=== PATIENT | male | born 1950 | race American Indian/Alaskan Native ===

== ENCOUNTER 2016-10-30 10:29 | Emergency (ER) | payer MEDICARE ==
[2016-10-30 11:14] VITALS: RESP 20; O2SAT 98
--- NOTE | 2016-10-30 12:04 | ED PDOC ---
HPI: General Adult Time Seen by Provider: 10/30/16 10:48 Chief Complaint (Nursing): Psychiatric Evaluation Chief Complaint (Provider): Urinating in public, denies complaints History Per: Patient History/Exam Limitations: no limitations Have you had recent travel within the past 21 days to any of the following countries: [place], [place], [place] or [place]?: No Additional Complaint(s): Pt was brought for psychiatric evaluation after he was seen urinating in a post office. Pt states he urinated on the floor because he has an enlarged prostate and when he has to go he has to go. Pt denies psychiatric history. PT denies complaints. Past Medical History Reviewed: Historical Data, Nursing Documentation, Vital Signs Vital Signs: Last Vital Signs Temp 97 F L 10/30/16 11:11 Pulse 66 10/30/16 11:11 Resp 20 10/30/16 11:11 BP 109/73 10/30/16 11:11 Pulse Ox 98 10/30/16 11:11 - Medical History PMH: No Chronic Diseases - Family History Family History: States: No Known Family Hx - Living Arrangements Living Arrangements: With Family - Social History Current smoker - smoking cessation education provided: No Alcohol: Occasional - Home Medications Home Medications: Ambulatory Orders Medication Instructions Recorded Clotrimazole 1% [Lotrimin AF 1%] 10 applic TOP BID #1 bottle 08/23/16 - Allergies Allergies/Adverse Reactions: Allergies Allergy/AdvReac Type Severity Reaction Status Date / Time No Known Allergies Allergy Verified 08/23/16 11:53 Review of Systems ROS Statement: Except As Marked, All Systems Reviewed And Found Negative Physical Exam - Reviewed Nursing Documentation Reviewed: Yes Vital Signs Reviewed: Yes - Physical Exam Appears: Positive for: Well, Non-toxic, No Acute Distress Head Exam: Positive for: ATRAUMATIC, NORMAL INSPECTION, NORMOCEPHALIC Skin: Positive for: Normal Color, Warm, DRY Eye Exam: Positive for: Normal appearance ENT: Positive for: Normal ENT Inspection Neck: Positive for: Normal, Painless ROM Cardiovascular/Chest: Positive for: Regular Rate, Rhythm Respiratory: Positive for: CNT, Normal Breath Sounds Gastrointestinal/Abdominal: Positive for: Normal Exam, Bowel Sounds, Soft Back: Positive for: Normal Inspection Extremity: Positive for: Normal ROM Neurologic/Psych: Positive for: Alert, Oriented - ECG O2 Sat by Pulse Oximetry: 98 Medical Decision Making Medical Decision Making: urine dip normal. Pt eats 2 trays of food in ER. Disposition - Clinical Impression Clinical Impression: Normal exam - Patient ED Disposition Is Patient to be Admitted: No Counseled Patient/Family Regarding: Diagnosis, Need For Followup - Disposition Referrals: [facility] [Outside] Disposition: Routine/Home Disposition Time: 12:41 Condition: GOOD Instructions: Normal Exam (ED)
[2016-10-30 14:19] VITALS: BP 128/78; PULSE 78; TEMP 97.6
== END 2016-10-30 14:19 | disposition home or self-care (01) ==
LOC: H.ER 10:29
DX: Z00.00 Encounter for general adult medical examination without abnormal findings (principal)

== ENCOUNTER 2017-04-16 11:27 | Inpatient (IN) | payer MEDICARE ==
[2017-04-16 11:46] VITALS: BMI 24.4
[2017-04-16] MEDS ORDERED: Sodium Chloride 0.9% 1,000 ML IV STA (11:46)
--- NOTE | 2017-04-16 11:53 | ED PDOC ---
HPI: General Adult Time Seen by Provider: 04/16/17 11:40 Chief Complaint (Provider): Wandering street History Per: Patient History/Exam Limitations: no limitations Onset/Duration Of Symptoms: Days (Today) Additional Complaint(s): Pt. was found walking the middle of the street so EMS and police brought pt. to the ER. Pt. states he is coming from [place] and did nothing wrong. Denies alcohol or drugs. Denies weakness, headaches, dizziness, fall, chest pain, dyspnea, abd pain, suicidal or homicidal ideation. Is under arrest. Has no complaints. Per records pt. has been in ER for etoh and aggressive behavior. Past Medical History Reviewed: Nursing Documentation, Vital Signs Vital Signs: Last Vital Signs Temp 98.4 F 04/16/17 11:52 Pulse 84 04/16/17 11:52 Resp 18 04/16/17 11:52 BP 139/85 04/16/17 11:52 Pulse Ox 96 04/16/17 11:52 - Medical History PMH: No Chronic Diseases - Surgical History Surgical History: No Surg Hx - Family History Family History: States: Unknown Family Hx - Social History Alcohol: Occasional Drugs: Denies - Home Medications Home Medications: Ambulatory Orders Medication Instructions Recorded Clotrimazole 1% [Lotrimin AF 1%] 10 applic TOP BID #1 bottle 08/23/16 - Allergies Allergies/Adverse Reactions: Allergies Allergy/AdvReac Type Severity Reaction Status Date / Time No Known Allergies Allergy Verified 08/23/16 11:53 Review of Systems ROS Statement: Except As Marked, All Systems Reviewed And Found Negative Physical Exam - Reviewed Nursing Documentation Reviewed: Yes Vital Signs Reviewed: Yes - Physical Exam Appears: Positive for: Non-toxic, No Acute Distress Head Exam: Positive for: ATRAUMATIC, NORMAL INSPECTION, NORMOCEPHALIC Skin: Positive for: Normal Color, Warm, DRY Eye Exam: Positive for: EOMI, Normal appearance, PERRL ENT: Positive for: Normal ENT Inspection Neck: Positive for: Normal, Painless ROM, Supple Cardiovascular/Chest: Positive for: Regular Rate, Rhythm Respiratory: Positive for: CNT, Normal Breath Sounds Gastrointestinal/Abdominal: Positive for: Normal Exam, Bowel Sounds, Soft. Negative for: Tenderness Back: Positive for: Normal Inspection. Negative for: L CVA Tenderness, R CVA Tenderness Extremity: Positive for: Normal ROM. 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 Negative for: Motor/Sensory Deficits - Laboratory Results Result Diagrams: 04/16/17 12:10 04/16/17 12:10 Interpretation Of Abn Labs: mono elevated - ECG ECG: Positive for: Interpreted By Me, Viewed By Me ECG Rhythm: Positive for: Normal QRS, Normal ST Segment, Sinus Rhythm - CT Scan/US head Other Rad Studies (CT/US): Read By Radiologist Other Rad Interpretation: sinusitis - Progress ED Course And Treament: 1412: Stable. AAOx3. Crisis saw pt. Does not meet criteria for admit. FU outpt. ED OBSERVATION Discharge: Yes Date of observation admission: 04/16/17 Time of observation admission: 11:53 - Observation admission statement Patient is being placed in observation because:: Eval for etoh - Goals of Observation Goals of observation are:: monitor - Progress Note Progress Note: 04/16/17 14:12 Stable. Ambulated with no issues. Will dc with antibiotics. AAOx3. Disposition - Clinical Impression Clinical Impression: Sinusitis, Aggression - Patient ED Disposition Is Patient to be Admitted: No Counseled Patient/Family Regarding: Studies Performed, Diagnosis, Need For Followup, Rx Given - Disposition Disposition: Routine/Home Disposition Time: 14:14 Condition: STABLE
[2017-04-16 12:18] LABS: BASO % 0.6 % (0.0-2.0); EOS # 0.2 K/uL (0.0-0.7); EOS % 5.9 % (0.0-4.0); HEMATOCRIT 37.2 % (35.0-51.0); LYMPH # 1.2 K/uL (1.0-4.3); LYMPH % 35.5 % (20.0-40.0); MEAN CELL VOLUME 86.3 fl (80.0-94.0); MEAN CORPUSCULAR HEMOGLOBIN 27.9 pg (27.0-31.0); MEAN CORPUSCULAR HGB CONC 32.4 g/dL (33.0-37.0); MEAN PLATELET VOLUME 6.9 fl (7.2-11.7); MONO # 0.4 K/uL (0.0-0.8); MONO % 12.7 % (0.0-10.0); NEUT # 1.5 K/uL (1.8-7.0); NEUT % 45.3 % (50.0-75.0); RED CELL DISTRIBUTION WIDTH 14.8 % (11.5-14.5); WHITE BLOOD COUNT 3.3 K/uL (4.8-10.8)
[2017-04-16 12:27] LABS: ALCOHOL SERUM < 10 mg/dl (0-10); BLOOD UREA NITROGEN 13 mg/dl (9-20); CALCIUM 9.6 mg/dL (8.4-10.2); CARBON DIOXIDE 24 mmol/L (22-30); CHLORIDE 106 mmol/L (98-107); GFR AFRICAN-AMERICAN > 60; GLUCOSE,RANDOM 89 mg/dL (75-110); POTASSIUM 3.8 MMOL/L (3.6-5.0); SODIUM 140 mmol/l (132-148)
--- NOTE | 2017-04-16 13:33 | CT ---
PROCEDURE: CT HEAD WITHOUT CONTRAST. HISTORY: headache COMPARISON: None available. TECHNIQUE: Axial computed tomography images were obtained through the head/brain without intravenous contrast. Radiation dose: Total exam DLP = 1237.67 mGy-cm. This CT exam was performed using one or more of the following dose reduction techniques: Automated exposure control, adjustment of the mA and/or kV according to patient size, and/or use of iterative reconstruction technique. FINDINGS: HEMORRHAGE: No intracranial hemorrhage. BRAIN: No mass effect or edema. Mild atrophy and mild white matter changes suggestive of chronic micro vascular ischemic disease. VENTRICLES: Unremarkable. No hydrocephalus. CALVARIUM: Unremarkable. PARANASAL SINUSES: There is moderate mucosal thickening and small air-fluid level at the left maxillary sinus. Moderate mucosal thickening is also noted at the ethmoid and frontal sinuses. Findings suspicious for sinusitis in appropriate clinical setting. MASTOID AIR CELLS: Unremarkable as visualized. No inflammatory changes. OTHER FINDINGS: None. IMPRESSION: No evidence of acute intracranial hemorrhage intracranial collection mass effect or midline shift. Moderate mucosal sinuses disease suspicious for sinusitis .
[2017-04-16] MEDS ORDERED: Naloxone 0.4 mg/ml Inj (Adult) IVP ONE ×2 (14:59→15:08)
--- NOTE | 2017-04-16 16:06 | CARD ---
APPROVED REPORT EKG Measurement Heart [id number] MS [id number] <Conclusion> Sinus rhythm with marked sinus arrhythmia Otherwise normal ECG
--- NOTE | 2017-04-16 16:13 | CP.CCUPN ---
CCU Subjective - Physician Review Subjective (Free Text): ICU Consultation for Admission: 66 M brought in by EMS after being found walking in the middle of the street, confused, and disoriented. No distress noted, given Narcan x 2 doses in ER without significant effect on mentation. Has been under ER observation and as he was about to be discharged, noted to be bradycardic on the m onto and found to have a HR 33, given Atropine 0.5mg IVP which increased HR to 80s. No hypotension nor hypoxemia noted, otherwise remains non-distressed. Otherwise he is a poor historian, and unable to provide any reliable historical facts. Review of old medical records show he has a Psychiatric history that includes schizophrenia. He states he is only on an antibiotic now. Other vitals and I/O's reviewed. No fever spikes. ROS: Not obtainable due to limited conversation with patient due to confusion / disorientation. No other pertinent negs or positives on 10+ system review. PMSFH: All Nursing and physician documentation reviewed to date; no new pertinent info noted relevant to current medical problems. MAJOR PROBLEMS: 1. Altered mental Status: r/o other Occult substance ingestion use; versus possible other anti-psychotic med usage. 2. Bradycardia 3. Leukopenia PLAN: 1. Telemetry observation. No need for any transcutaneous nor transvenous cardiac pacing. 2. CT brain negative, maintain Neuro checks, seizure precautions. 3. ECHO 4. Check repeat EKG 5. IVFs 6. Urine tox screen 7. Serum tox panel 8. May need 1:1 supervision for patient safety and psychiatric eval. CCU Objective - Vital Signs / Intake & Output Vital Signs (Last 4 hours): Vital Signs Pulse Resp BP Pulse Ox 04/16/17 15:34 57 L 18 126/78 99 Intake and Output (Last 8hrs): Intake & Output 04/16/17 04/16/17 04/16/17 06:59 14:59 22:59 Weight 165 lb - Physical Exam Physical Exam Limitations: Positive for: Altered Mental Status Head: Positive for: Normocephalic Pupils: Positive for: PERRL Extroacular Muscles: Positive for: EOMI Conjunctiva: Negative for: Icteric Mouth: Positive for: Moist Mucous Membranes. Negative for: Drooling Neck: Positive for: Normal Range of Motion. Negative for: Meningeal Signs, JVD , Lymphadenopathy Respiratory/Chest: Positive for: Clear to Auscultation Cardiovascular: Positive for: Regular Rate and Rhythm, Bradycardic Abdomen: Positive for: Normal Bowel Sounds. Negative for: Tenderness, Distention Upper Extremity: Positive for: Normal Inspection Lower Extremity: Positive for: Edema (trace), NORMAL PULSES Neurological: Positive for: GCS=15. Negative for: Speech Normal, Motor Func Grossly Intact, Normal Sensory Function Skin: Positive for: Warm. Negative for: Rashes - Patient Studies Lab Studies: Lab Studies 04/16/17 04/16/17 04/16/17 Range/Units 15:30 12:10 12:10 WBC 3.3 L (4.8-10.8) K/uL RBC 4.31 L (4.40-5.90) Mil/uL Hgb 12.0 (12.0-18.0) g/dL Hct 37.2 (35.0-51.0) % MCV 86.3 (80.0-94.0) fl MCH 27.9 (27.0-31.0) pg MCHC 32.4 L (33.0-37.0) g/dL RDW 14.8 H (11.5-14.5) % Plt Count 246 (130-400) K/uL MPV 6.9 L (7.2-11.7) fl Neut % (Auto) 45.3 L (50.0-75.0) % Lymph % (Auto) 35.5 (20.0-40.0) % [place] % (Auto) 12.7 H (0.0-10.0) % Eos % (Auto) 5.9 H (0.0-4.0) % Baso % (Auto) 0.6 (0.0-2.0) % Neut # 1.5 L (1.8-7.0) K/uL Lymph # 1.2 (1.0-4.3) K/uL [place] # 0.4 (0.0-0.8) K/uL Eos # 0.2 (0.0-0.7) K/uL Baso # 0.0 (0.0-0.2) K/uL Sodium 140 (132-148) mmol/l Potassium 3.8 (3.6-5.0) MMOL/L Chloride 106 (98-107) mmol/L Carbon Dioxide 24 (22-30) mmol/L Anion Gap 13 (10-20) BUN 13 (9-20) mg/dl Creatinine 0.9 (0.8-1.5) mg/dL Est GFR ( Amer) > 60 Est GFR (Non-Af Amer) > 60 Random Glucose 89 (75-110) mg/dL Calcium 9.6 (8.4-10.2) mg/dL Troponin I < 0.0120 (0.00-0.120) ng/mL Urine Opiates Screen Negative (NEGATIVE) Urine Methadone Screen Negative (NEGATIVE) Ur Barbiturates Screen Negative (NEGATIVE) Ur Phencyclidine Scrn Negative (NEGATIVE) Ur Amphetamines Screen Negative (NEGATIVE) U Benzodiazepines Scrn Negative (NEGATIVE) U Oth Cocaine Metabols Negative (NEGATIVE) U Cannabinoids Screen Negative (NEGATIVE) Alcohol, Quantitative < 10 (0-10) mg/dl Laboratory Results - last 24 hr 04/16/17 04/16/17 04/16/17 12:10 12:10 15:30 WBC 3.3 L RBC 4.31 L Hgb 12.0 Hct 37.2 MCV 86.3 MCH 27.9 MCHC 32.4 L RDW 14.8 H Plt Count 246 MPV 6.9 L Neut % (Auto) 45.3 L Lymph % (Auto) 35.5 [place] % (Auto) 12.7 H Eos % (Auto) 5.9 H Baso % (Auto) 0.6 Neut # 1.5 L Lymph # 1.2 [place] # 0.4 Eos # 0.2 Baso # 0.0 Sodium 140 Potassium 3.8 Chloride 106 Carbon Dioxide 24 Anion Gap 13 BUN 13 Creatinine 0.9 Est GFR ( Amer) > 60 Est GFR (Non-Af Amer) > 60 Random Glucose 89 Calcium 9.6 Troponin I < 0.0120 Urine Opiates Screen Negative Urine Methadone Screen Negative Ur Barbiturates Screen Negative Ur Phencyclidine Scrn Negative Ur Amphetamines Screen Negative U Benzodiazepines Scrn Negative U Oth Cocaine Metabols Negative U Cannabinoids Screen Negative Alcohol, Quantitative < 10 EKG/Cardiology Studies: (My Interp) EKG #1; sinus 66/min, sinus arrythmia noted. Review of Systems - Review of Systems Systems not reviewed;Unavailable: Altered Mental Status
[2017-04-16] MEDS: Potassium Ch 20mEq in D5-1/2NS 1,000 ML IV SCH (20:00)
--- NOTE | 2017-04-16 21:14 | CP.PCM.CON ---
Past Patient History - Infectious Disease Hx of Infectious Diseases: None - Past Social History Smoking Status: Heavy Smoker > 10 Cigarettes Daily - CARDIAC Hx Cardiac Disorders: No - PULMONARY Hx Tuberculosis: No - NEUROLOGICAL HX Cerebrovascular Accident: No Hx Seizures: No - HEMATOLOGICAL/ONCOLOGICAL Hx AIDS: No Hx Human Immunodeficiency Virus (HIV): No - MUSCULOSKELETAL/RHEUMATOLOGICAL Hx Falls: No - GASTROINTESTINAL Hx Gastrointestinal Disorders: No - GENITOURINARY/GYNECOLOGICAL Hx Sexually Transmitted Disorders: No - PSYCHIATRIC Hx Substance Use: Yes - SURGICAL HISTORY Hx Surgeries: No - ANESTHESIA Hx Anesthesia: No Meds Allergies/Adverse Reactions: Allergies Allergy/AdvReac Type Severity Reaction Status Date / Time No Known Allergies Allergy Verified 08/23/16 11:53 - Medications Medications: Current Medications Aspirin (Aspirin) 325 mg PO DAILY [facility] Enoxaparin Sodium (Lovenox) 40 mg SC DAILY [facility] PRN Reason: Protocol Famotidine (Pepcid) 20 mg IVP Q12 [facility] Potassium Chloride/Dextrose/Sod Cl (Potassium Chl 20 Meq In D5-1/2ns) 1,000 mls @ 125 mls/hr IV .Q8H [facility] Stop: 04/17/17 17:57 Pantoprazole Sodium (Protonix Inj) 40 mg IVP DAILY [facility] Results - Vital Signs Recent Vital Signs: Last Vital Signs Temp 98.8 F 04/16/17 18:00 Pulse 45 L 04/16/17 18:14 Resp 24 04/16/17 18:14 BP 135/96 H 04/16/17 18:00 Pulse Ox 98 04/16/17 18:00 - Labs Result Diagrams: 04/16/17 12:10 04/16/17 12:10 Labs: Laboratory Results - last 24 hr 04/16/17 04/16/17 04/16/17 12:10 12:10 15:30 WBC 3.3 L RBC 4.31 L Hgb 12.0 Hct 37.2 MCV 86.3 MCH 27.9 MCHC 32.4 L RDW 14.8 H Plt Count 246 MPV 6.9 L Neut % (Auto) 45.3 L Lymph % (Auto) 35.5 [place] % (Auto) 12.7 H Eos % (Auto) 5.9 H Baso % (Auto) 0.6 Neut # 1.5 L Lymph # 1.2 [place] # 0.4 Eos # 0.2 Baso # 0.0 Sodium 140 Potassium 3.8 Chloride 106 Carbon Dioxide 24 Anion Gap 13 BUN 13 Creatinine 0.9 Est GFR ( Amer) > 60 Est GFR (Non-Af Amer) > 60 Random Glucose 89 Calcium 9.6 Troponin I < 0.0120 Urine Opiates Screen Negative Urine Methadone Screen Negative Ur Barbiturates Screen Negative Ur Phencyclidine Scrn Negative Ur Amphetamines Screen Negative U Benzodiazepines Scrn Negative U Oth Cocaine Metabols Negative U Cannabinoids Screen Negative Alcohol, Quantitative < 10 Assessment & Plan (1) Bradycardia Status: Acute (2) Intoxication Status: Acute (3) Aggression Status: Acute - Assessment and Plan (Free Text) Plan: WOULD CHECK LYTES, ECHO, AND TFT'S. PT HEMODYNAMICALLY STABLE. IF HR DOESNT INCREASE WITH MOVEMENT OR TREATMENT OF KNOWN ETIOLOGY THEN WILL LIKELY NEED PPM. FOR NOW CONTINUE ICU MONITORING, AVOID ANY RATE LIMITING AGENTS. 60 MIN TOTAL CARE TIME.
[2017-04-17] MEDS: Potassium Ch 20mEq in D5-1/2NS 1,000 ML IV SCH ×2 (04:00→12:25)
[2017-04-17 05:37] LABS: BASO % 0.8 % (0.0-2.0); EOS # 0.2 K/uL (0.0-0.7); HEMATOCRIT 37.7 % (35.0-51.0); LYMPH % 28.1 % (20.0-40.0); MEAN CELL VOLUME 86.1 fl (80.0-94.0); MEAN CORPUSCULAR HEMOGLOBIN 27.9 pg (27.0-31.0); MEAN CORPUSCULAR HGB CONC 32.4 g/dL (33.0-37.0); MEAN PLATELET VOLUME 7.3 fl (7.2-11.7); MONO # 0.5 K/uL (0.0-0.8); MONO % 13.6 % (0.0-10.0); NEUT # 1.8 K/uL (1.8-7.0); NEUT % 51.5 % (50.0-75.0); NRBC % 0.1 % (0.0-0.0); RED CELL DISTRIBUTION WIDTH 14.8 % (11.5-14.5); WHITE BLOOD COUNT 3.4 K/uL (4.8-10.8)
[2017-04-17 05:41] LABS: ALB/GLOB RATIO 1.2 (1.0-2.1); ALKALINE PHOSPHATASE 67 U/L (38-126); ALT/SGPT 51 U/L (21-72); AST/SGOT 40 U/L (17-59); BILIRUBIN,TOTAL 0.5 mg/dl (0.2-1.3); BLOOD UREA NITROGEN 15 mg/dl (9-20); CALCIUM 8.8 mg/dL (8.4-10.2); CARBON DIOXIDE 27 mmol/L (22-30); CHLORIDE 107 mmol/L (98-107); GFR AFRICAN-AMERICAN > 60; GLUCOSE,RANDOM 92 mg/dL (75-110); MAGNESIUM 1.9 MG/DL (1.6-2.3); POTASSIUM 4.3 MMOL/L (3.6-5.0); SODIUM 139 mmol/l (132-148); TOTAL PROTEIN 6.4 G/DL (6.3-8.2)
--- NOTE | 2017-04-17 08:40 | CARD ---
APPROVED REPORT EKG Measurement Heart [id number] <Conclusion> Marked sinus bradycardia Abnormal ECG
--- NOTE | 2017-04-17 08:51 | CP.PCM.HP ---
History of Present Illness - History of Present Illness History of Present Illness: pt admitted for bradycardia. was in sr down to 30s w/o cp. no f/c, n/v/d. no associated s/s. hr cam eback up w/ atropine. pt was lethargic yesterday w/o response from narcan. at present alert nad oriented. mumbles answers. asking for protective services social worker for "personal problem". SB at 50s on monitor. bw wnl. cardi consult appriciated pending echo Present on Admission - Present on Admission Any Indicators Present on Admission: No Review of Systems - Cardiovascular Cardiovascular: As Per HPI, Slow Heart Rate Past Patient History - Infectious Disease Hx of Infectious Diseases: None - Past Social History Smoking Status: Heavy Smoker > 10 Cigarettes Daily - CARDIAC Hx Cardiac Disorders: No - PULMONARY Hx Tuberculosis: No - NEUROLOGICAL HX Cerebrovascular Accident: No Hx Seizures: No - HEMATOLOGICAL/ONCOLOGICAL Hx AIDS: No Hx Human Immunodeficiency Virus (HIV): No - MUSCULOSKELETAL/RHEUMATOLOGICAL Hx Falls: No - GASTROINTESTINAL Hx Gastrointestinal Disorders: No - GENITOURINARY/GYNECOLOGICAL Hx Sexually Transmitted Disorders: No - PSYCHIATRIC Hx Substance Use: Yes - SURGICAL HISTORY Hx Surgeries: No - ANESTHESIA Hx Anesthesia: No Meds Allergies/Adverse Reactions: Allergies Allergy/AdvReac Type Severity Reaction Status Date / Time No Known Allergies Allergy Verified 08/23/16 11:53 Physical Exam - Constitutional Appears: Well, Non-toxic, No Acute Distress - Head Exam Head Exam: ATRAUMATIC, NORMAL INSPECTION, NORMOCEPHALIC - Eye Exam Eye Exam: EOMI, Normal appearance, PERRL Pupil Exam: NORMAL ACCOMODATION, PERRL - ENT Exam ENT Exam: Mucous Membranes Moist, Normal Exam - Neck Exam Neck exam: Positive for: Normal Inspection - Respiratory Exam Respiratory Exam: Clear to Auscultation Bilateral, NORMAL BREATHING PATTERN - Cardiovascular Exam Cardiovascular Exam: Bradycardia, REGULAR RHYTHM, RRR, +S1, +S2 - GI/Abdominal Exam GI & Abdominal Exam: Normal Bowel Sounds, Soft. absent: Tenderness - Extremities Exam Extremities exam: Positive for: full ROM, normal capillary refill, normal inspection, pedal pulses present - Back Exam Back exam: FULL ROM, NORMAL INSPECTION - Neurological Exam Neurological exam: Alert, CN II-XII Intact, Normal Gait, Oriented x3, Reflexes Normal - Psychiatric Exam Psychiatric exam: Normal Affect, Normal Mood - Skin Skin Exam: Dry, Intact, Normal Color, Warm Results - Vital Signs Recent Vital Signs: Last Vital Signs Temp 97.8 F 04/17/17 04:00 Pulse 65 04/17/17 06:00 Resp 16 04/17/17 06:00 BP 98/31 L 04/17/17 06:00 Pulse Ox 98 04/17/17 06:00 - Labs Result Diagrams: 04/17/17 04:30 04/17/17 04:30 Labs: Laboratory Results - last 24 hr 04/16/17 04/16/17 04/16/17 12:10 12:10 15:30 WBC 3.3 L RBC 4.31 L Hgb 12.0 Hct 37.2 MCV 86.3 MCH 27.9 MCHC 32.4 L RDW 14.8 H Plt Count 246 MPV 6.9 L Neut % (Auto) 45.3 L Lymph % (Auto) 35.5 [place] % (Auto) 12.7 H Eos % (Auto) 5.9 H Baso % (Auto) 0.6 Neut # 1.5 L Lymph # 1.2 [place] # 0.4 Eos # 0.2 Baso # 0.0 Sodium 140 Potassium 3.8 Chloride 106 Carbon Dioxide 24 Anion Gap 13 BUN 13 Creatinine 0.9 Est GFR ( Amer) > 60 Est GFR (Non-Af Amer) > 60 Random Glucose 89 Calcium 9.6 Magnesium Total Bilirubin AST ALT Alkaline Phosphatase Troponin I < 0.0120 Total Protein Albumin Globulin Albumin/Globulin Ratio Free T4 Total T3 TSH 3rd Generation Urine Opiates Screen Negative Urine Methadone Screen Negative Ur Barbiturates Screen Negative Ur Phencyclidine Scrn Negative Ur Amphetamines Screen Negative U Benzodiazepines Scrn Negative U Oth Cocaine Metabols Negative U Cannabinoids Screen Negative Alcohol, Quantitative < 10 04/17/17 04/17/17 04/17/17 04:30 04:30 04:30 WBC 3.4 L RBC 4.38 L Hgb 12.2 Hct 37.7 MCV 86.1 MCH 27.9 MCHC 32.4 L RDW 14.8 H Plt Count 246 MPV 7.3 Neut % (Auto) 51.5 Lymph % (Auto) 28.1 [place] % (Auto) 13.6 H Eos % (Auto) 6.0 H Baso % (Auto) 0.8 Neut # 1.8 Lymph # 1.0 [place] # 0.5 Eos # 0.2 Baso # 0.0 Sodium 139 Potassium 4.3 Chloride 107 Carbon Dioxide 27 Anion Gap 10 BUN 15 Creatinine 0.9 Est GFR ( Amer) > 60 Est GFR (Non-Af Amer) > 60 Random Glucose 92 Calcium 8.8 Magnesium 1.9 Total Bilirubin 0.5 AST 40 ALT 51 Alkaline Phosphatase 67 Troponin I Total Protein 6.4 Albumin 3.5 Globulin 3.0 Albumin/Globulin Ratio 1.2 Free T4 1.16 Total T3 0.896 L TSH 3rd Generation 0.50 Urine Opiates Screen Urine Methadone Screen Ur Barbiturates Screen Ur Phencyclidine Scrn Ur Amphetamines Screen U Benzodiazepines Scrn U Oth Cocaine Metabols U Cannabinoids Screen Alcohol, Quantitative Assessment & Plan (1) DVT prophylaxis Assessment and Plan: scd nad aehose ambulation lovenox Status: Acute (2) Bradycardia Assessment and Plan: tft noted cardi consult appriciated echo pending case d/c w/ cardio/icu attendings Status: Acute (3) Sinusitis Assessment and Plan: levaquin as started by ER Status: Acute Decision To Admit - Pt Status Changed To: Hospital Disposition Of: Inpatient - Admit Certification Admit to Inpatient:: After my assessment, the patient will require hospitalization for at least two midnights. This is because of the severity of symptoms shown, intensity of services needed, and/or the medical risk in this patient being treated as an outpatient. - . Bed Request Type: Intensive Care Admitting Physician: Queenie Wray
[2017-04-17] MEDS ORDERED: levoFLOXacin 500 MG TAB PO SCH (09:00)
[2017-04-17] MEDS ORDERED: Enoxaparin 40 mg Syringe SC SCH (09:00)
--- NOTE | 2017-04-17 10:35 | RAD ---
HISTORY: Bradycardia COMPARISON: Comparison made with chest radiograph dated 10/14/2012 FINDINGS: LUNGS: Mild bibasilar atelectasis with elevation right hemidiaphragm. PLEURA: No significant pleural effusion identified, no pneumothorax apparent. CARDIOVASCULAR: Normal. OSSEOUS STRUCTURES: No significant abnormalities. VISUALIZED UPPER ABDOMEN: Normal. OTHER FINDINGS: None. IMPRESSION: Mild bibasilar atelectasis with elevation right hemidiaphragm
--- NOTE | 2017-04-17 10:36 | CP.CCUPN ---
CCU Subjective - Physician Review Subjective (Free Text): Uneventful night, has been bradycardic with HR 45-50s, but asymptomatic. Mental status more appropriate this am, still denies any occult substance use or abuse. Denies any headaches, dizziness, CP, SOB, nausea, focal weakness or deficits. No distress, lying in bed, sheets drawn over his head. Other vitals and I/O's reviewed. No fever spikes. ROS: No other pertinent negs or positives on 10+ system review. PMSFH: All Nursing and physician documentation reviewed to date; no new pertinent info noted relevant to current medical problems. MAJOR PROBLEMS: 1. Altered mental Status: r/o other Occult substance ingestion use; versus possible other anti-psychotic med usage. 2. Bradycardia 3. Leukopenia PLAN: 1. Telemetry observation. No need for any transcutaneous nor transvenous cardiac pacing. 2. CT brain negative, maintain Neuro checks, seizure precautions. 3. ECHO 4. Check repeat EKG 5. IVFs 6. Urine tox screen negative. 7. Serum tox panel pending. 8. May need 1:1 supervision for patient safety and consider psychiatric eval. CCU Objective - Vital Signs / Intake & Output Vital Signs (Last 4 hours): Vital Signs Temp Pulse Resp BP Pulse Ox 04/17/17 08:00 98.4 F 92 H 19 127/65 99 Intake and Output (Last 8hrs): Intake & Output 04/16/17 04/17/17 04/17/17 22:59 06:59 14:59 Intake Total 281 1240 Output Total 650 Balance 281 590 Intake: IV 281 1000 Oral 240 Output: Urine 650 Urethral ([place]) 650 - Physical Exam Head: Positive for: Normocephalic Pupils: Positive for: PERRL Extroacular Muscles: Positive for: EOMI Conjunctiva: Negative for: Icteric Mouth: Positive for: Moist Mucous Membranes. Negative for: Drooling Neck: Positive for: Normal Range of Motion. Negative for: Meningeal Signs, JVD , Lymphadenopathy Respiratory/Chest: Positive for: Clear to Auscultation Cardiovascular: Positive for: Regular Rate and Rhythm, Bradycardic Abdomen: Positive for: Normal Bowel Sounds. Negative for: Tenderness, Distention Upper Extremity: Positive for: Normal Inspection Lower Extremity: Positive for: Edema (trace), NORMAL PULSES Neurological: Positive for: GCS=15. Negative for: Speech Normal, Motor Func Grossly Intact, Normal Sensory Function Skin: Positive for: Warm. Negative for: Rashes - Medications Active Medications: Active Medications Generic Name Dose Route Start Last Admin Trade Name Freq PRN Reason Stop Dose Admin Aspirin 325 mg 04/17/17 09:00 04/17/17 08:26 Aspirin PO 325 mg DAILY MARILY Administration Enoxaparin Sodium 40 mg 04/17/17 09:00 04/17/17 08:26 Lovenox SC 40 mg DAILY MARILY Administration Protocol Famotidine 20 mg 04/16/17 21:00 04/17/17 08:27 Pepcid IVP 20 mg Q12 MARILY Administration Potassium Chloride/Dextrose/Sod Cl 1,000 mls @ 125 mls/hr 04/16/17 18:00 04:00 Potassium Chl 20 Meq In D5-1/2ns IV 04/17/17 17:57 125 mls/hr .Q8H MARILY Administration Levofloxacin 500 mg 04/17/17 09:00 Levaquin PO DAILY MARILY Pantoprazole Sodium 40 mg 04/17/17 09:00 04/17/17 08:27 Protonix Inj IVP Not Given DAILY MARILY - Patient Studies Lab Studies: Lab Studies 04/17/17 04/17/17 04/17/17 Range/Units 04:30 04:30 04:30 WBC 3.4 L (4.8-10.8) K/uL RBC 4.38 L (4.40-5.90) Mil/uL Hgb 12.2 (12.0-18.0) g/dL Hct 37.7 (35.0-51.0) % MCV 86.1 (80.0-94.0) fl MCH 27.9 (27.0-31.0) pg MCHC 32.4 L (33.0-37.0) g/dL RDW 14.8 H (11.5-14.5) % Plt Count 246 (130-400) K/uL MPV 7.3 (7.2-11.7) fl Neut % (Auto) 51.5 (50.0-75.0) % Lymph % (Auto) 28.1 (20.0-40.0) % [place] % (Auto) 13.6 H (0.0-10.0) % Eos % (Auto) 6.0 H (0.0-4.0) % Baso % (Auto) 0.8 (0.0-2.0) % Neut # 1.8 (1.8-7.0) K/uL Lymph # 1.0 (1.0-4.3) K/uL [place] # 0.5 (0.0-0.8) K/uL Eos # 0.2 (0.0-0.7) K/uL Baso # 0.0 (0.0-0.2) K/uL Sodium 139 (132-148) mmol/l Potassium 4.3 (3.6-5.0) MMOL/L Chloride 107 (98-107) mmol/L Carbon Dioxide 27 (22-30) mmol/L Anion Gap 10 (10-20) BUN 15 (9-20) mg/dl Creatinine 0.9 (0.8-1.5) mg/dL Est GFR ( Amer) > 60 Est GFR (Non-Af Amer) > 60 Random Glucose 92 (75-110) mg/dL Calcium 8.8 (8.4-10.2) mg/dL Magnesium 1.9 (1.6-2.3) MG/DL Total Bilirubin 0.5 (0.2-1.3) mg/dl AST 40 (17-59) U/L ALT 51 (21-72) U/L Alkaline Phosphatase 67 (38-126) U/L Troponin I (0.00-0.120) ng/mL Total Protein 6.4 (6.3-8.2) G/DL Albumin 3.5 (3.5-5.0) g/dL Globulin 3.0 (2.2-3.9) gm/dL Albumin/Globulin Ratio 1.2 (1.0-2.1) Free T4 1.16 (0.78-2.19) ng/dL Total T3 0.896 L (1.49-2.60) nmol/L TSH 3rd Generation 0.50 (0.46-4.68) mIU/ML Urine Opiates Screen (NEGATIVE) Urine Methadone Screen (NEGATIVE) Ur Barbiturates Screen (NEGATIVE) Ur Phencyclidine Scrn (NEGATIVE) Ur Amphetamines Screen (NEGATIVE) U Benzodiazepines Scrn (NEGATIVE) U Oth Cocaine Metabols (NEGATIVE) U Cannabinoids Screen (NEGATIVE) Alcohol, Quantitative (0-10) mg/dl 04/16/17 04/16/17 04/16/17 Range/Units 15:30 12:10 12:10 WBC 3.3 L (4.8-10.8) K/uL RBC 4.31 L (4.40-5.90) Mil/uL Hgb 12.0 (12.0-18.0) g/dL Hct 37.2 (35.0-51.0) % MCV 86.3 (80.0-94.0) fl MCH 27.9 (27.0-31.0) pg MCHC 32.4 L (33.0-37.0) g/dL RDW 14.8 H (11.5-14.5) % Plt Count 246 (130-400) K/uL MPV 6.9 L (7.2-11.7) fl Neut % (Auto) 45.3 L (50.0-75.0) % Lymph % (Auto) 35.5 (20.0-40.0) % [place] % (Auto) 12.7 H (0.0-10.0) % Eos % (Auto) 5.9 H (0.0-4.0) % Baso % (Auto) 0.6 (0.0-2.0) % Neut # 1.5 L (1.8-7.0) K/uL Lymph # 1.2 (1.0-4.3) K/uL [place] # 0.4 (0.0-0.8) K/uL Eos # 0.2 (0.0-0.7) K/uL Baso # 0.0 (0.0-0.2) K/uL Sodium 140 (132-148) mmol/l Potassium 3.8 (3.6-5.0) MMOL/L Chloride 106 (98-107) mmol/L Carbon Dioxide 24 (22-30) mmol/L Anion Gap 13 (10-20) BUN 13 (9-20) mg/dl Creatinine 0.9 (0.8-1.5) mg/dL Est GFR ( Amer) > 60 Est GFR (Non-Af Amer) > 60 Random Glucose 89 (75-110) mg/dL Calcium 9.6 (8.4-10.2) mg/dL Magnesium (1.6-2.3) MG/DL Total Bilirubin (0.2-1.3) mg/dl AST (17-59) U/L ALT (21-72) U/L Alkaline Phosphatase (38-126) U/L Troponin I < 0.0120 (0.00-0.120) ng/mL Total Protein (6.3-8.2) G/DL Albumin (3.5-5.0) g/dL Globulin (2.2-3.9) gm/dL Albumin/Globulin Ratio (1.0-2.1) Free T4 (0.78-2.19) ng/dL Total T3 (1.49-2.60) nmol/L TSH 3rd Generation (0.46-4.68) mIU/ML Urine Opiates Screen Negative (NEGATIVE) Urine Methadone Screen Negative (NEGATIVE) Ur Barbiturates Screen Negative (NEGATIVE) Ur Phencyclidine Scrn Negative (NEGATIVE) Ur Amphetamines Screen Negative (NEGATIVE) U Benzodiazepines Scrn Negative (NEGATIVE) U Oth Cocaine Metabols Negative (NEGATIVE) U Cannabinoids Screen Negative (NEGATIVE) Alcohol, Quantitative < 10 (0-10) mg/dl Laboratory Results - last 24 hr 04/16/17 04/16/17 04/16/17 12:10 12:10 15:30 WBC 3.3 L RBC 4.31 L Hgb 12.0 Hct 37.2 MCV 86.3 MCH 27.9 MCHC 32.4 L RDW 14.8 H Plt Count 246 MPV 6.9 L Neut % (Auto) 45.3 L Lymph % (Auto) 35.5 [place] % (Auto) 12.7 H Eos % (Auto) 5.9 H Baso % (Auto) 0.6 Neut # 1.5 L Lymph # 1.2 [place] # 0.4 Eos # 0.2 Baso # 0.0 Sodium 140 Potassium 3.8 Chloride 106 Carbon Dioxide 24 Anion Gap 13 BUN 13 Creatinine 0.9 Est GFR ( Amer) > 60 Est GFR (Non-Af Amer) > 60 Random Glucose 89 Calcium 9.6 Magnesium Total Bilirubin AST ALT Alkaline Phosphatase Troponin I < 0.0120 Total Protein Albumin Globulin Albumin/Globulin Ratio Free T4 Total T3 TSH 3rd Generation Urine Opiates Screen Negative Urine Methadone Screen Negative Ur Barbiturates Screen Negative Ur Phencyclidine Scrn Negative Ur Amphetamines Screen Negative U Benzodiazepines Scrn Negative U Oth Cocaine Metabols Negative U Cannabinoids Screen Negative Alcohol, Quantitative < 10 04/17/17 04/17/17 04/17/17 04:30 04:30 04:30 WBC 3.4 L RBC 4.38 L Hgb 12.2 Hct 37.7 MCV 86.1 MCH 27.9 MCHC 32.4 L RDW 14.8 H Plt Count 246 MPV 7.3 Neut % (Auto) 51.5 Lymph % (Auto) 28.1 [place] % (Auto) 13.6 H Eos % (Auto) 6.0 H Baso % (Auto) 0.8 Neut # 1.8 Lymph # 1.0 [place] # 0.5 Eos # 0.2 Baso # 0.0 Sodium 139 Potassium 4.3 Chloride 107 Carbon Dioxide 27 Anion Gap 10 BUN 15 Creatinine 0.9 Est GFR ( Amer) > 60 Est GFR (Non-Af Amer) > 60 Random Glucose 92 Calcium 8.8 Magnesium 1.9 Total Bilirubin 0.5 AST 40 ALT 51 Alkaline Phosphatase 67 Troponin I Total Protein 6.4 Albumin 3.5 Globulin 3.0 Albumin/Globulin Ratio 1.2 Free T4 1.16 Total T3 0.896 L TSH 3rd Generation 0.50 Urine Opiates Screen Urine Methadone Screen Ur Barbiturates Screen Ur Phencyclidine Scrn Ur Amphetamines Screen U Benzodiazepines Scrn U Oth Cocaine Metabols U Cannabinoids Screen Alcohol, Quantitative EKG/Cardiology Studies: Cardiology / EKG Studies 04/16/17 11:46 ELECTROCARDIOGRAM Stat Comment: Mode Of Transportation: Reason For Exam: needed 04/16/17 14:55 ELECTROCARDIOGRAM Stat Comment: Mode Of Transportation: Reason For Exam: needed 04/16/17 15:00 ELECTROCARDIOGRAM Stat Comment: Mode Of Transportation: Reason For Exam: needed 04/17/17 09:00 EKG [ELECTROCARDIOGRAM] DAILY Comment: Mode Of Transportation: Reason For Exam: f/u bradycardia Review of Systems - Review of Systems All systems: reviewed and no additional remarkable complaints except (as above)
[2017-04-17 10:43] VITALS: BP 148/56; PULSE 65; RESP 14; O2SAT 100
--- NOTE | 2017-04-17 11:59 | CARD ---
APPROVED REPORT EXAM: Two-dimensional and M-mode echocardiogram with Doppler and color Doppler. Other Information Quality : GoodRhythm : Bradycardia INDICATION Abnormal EKG/Arrhythmia 2D DIMENSIONS IVSd1.03 (0.7-1.1cm)LVDd4.50 (3.9-5.9cm) LVOT Diameter2.23 (1.8-2.4cm)PWd0.97 (0.7-1.1cm) IVSs1.54 (0.8-1.2cm)LVDs3.10 (2.5-4.0cm) FS (%) 31.1 %PWs1.38 (0.8-1.2cm) M-Mode DIMENSIONS Left Atrium (MM)3.76 (2.5-4.0cm)IVSd1.00 (0.7-1.1cm) Aortic Root3.09 (2.2-3.7cm)LVDd5.17 (4.0-5.6cm) Aortic Cusp Exc.2.52 (1.5-2.0cm)PWd0.85 (0.7-1.1cm) IVSs1.44 cmFS (%) 34 % LVDs3.42 (2.0-3.8cm)PWs1.39 cm Mitral Valve MV E Kmqrfdyo08.6cm/sMV DECEL [id number] A Brravfoe61.8cm/s MV YLT41rtJ/A ratio2.7MVA (PHT)5.55cm2 TDI Lateral E' Peak V12.14cm/sMedial E' Peak V8.80cm/sE/Lateral E'7.0 E/Medial E'9.6 Pulmonary Valve PV Peak Bdcrhglk04.8cm/s Tricuspid Valve TR Peak Mptjlxwi353za/sRAP RKXMXHBA65tlFaPT Peak Gr.20mmHg [id number] LEFT VENTRICLE The left ventricle is normal size. There is normal left ventricular wall thickness. The left ventricular function is normal. The left ventricular ejection fraction is within the normal range. The Ejection Fraction is 65-70%. There is normal LV segmental wall motion. The left ventricular diastolic function is normal. No left ventricle thrombus noted on this study. There is no mass noted in the left ventricle. RIGHT VENTRICLE The right ventricle is normal size. There is normal right ventricular wall thickness. The right ventricular systolic function is normal. ATRIA The left atrium size is normal. The right atrium size is normal. The interatrial septum is intact with no evidence for an atrial septal defect. AORTIC VALVE The aortic valve is normal in structure and function. No aortic regurgitation is present. There is no aortic valvular stenosis. There is no aortic valvular vegetation. MITRAL VALVE The mitral valve is normal in structure and function. There is no evidence of mitral valve prolapse. There is no mitral valve stenosis. There is no mitral valve regurgitation noted. TRICUSPID VALVE The tricuspid valve is normal in structure and function. There is no tricuspid valve regurgitation noted. There is no tricuspid valve prolapse or vegetation. There is no tricuspid valve stenosis. PULMONIC VALVE The pulmonary valve is normal in structure and function. There is no pulmonic valvular regurgitation. There is no pulmonic valvular stenosis. GREAT VESSELS The aortic root is normal in size. The IVC is normal in size and collapses >50% with inspiration. PERICARDIAL EFFUSION The pericardium appears normal. There is no pleural effusion. <Conclusion> The left ventricle is normal size. The left ventricular function is normal. The left ventricular ejection fraction is within the normal range. The Ejection Fraction is 65-70%.
[2017-04-17 12:45] VITALS: TEMP 98.2
--- NOTE | 2017-04-17 15:23 | CP.PCM.DIS ---
Provider - Provider Date of Admission: 04/16/17 15:20 Attending physician: Queenie Wray MD Time Spent in preparation of Discharge (in minutes): 30 Diagnosis - Discharge Diagnosis (1) DVT prophylaxis Status: Acute (2) Bradycardia Status: Acute (3) Sinusitis Status: Acute Hospital Course - Lab Results Lab Results: Most Recent Lab Values WBC 3.4 K/uL (4.8-10.8) L 04/17/17 04:30 RBC 4.38 Mil/uL (4.40-5.90) L 04/17/17 04:30 Hgb 12.2 g/dL (12.0-18.0) 04/17/17 04:30 Hct 37.7 % (35.0-51.0) 04/17/17 04:30 MCV 86.1 fl (80.0-94.0) 04/17/17 04:30 MCH 27.9 pg (27.0-31.0) 04/17/17 04:30 MCHC 32.4 g/dL (33.0-37.0) L 04/17/17 04:30 RDW 14.8 % (11.5-14.5) H 04/17/17 04:30 Plt Count 246 K/uL (130-400) 04/17/17 04:30 MPV 7.3 fl (7.2-11.7) 04/17/17 04:30 Neut % (Auto) 51.5 % (50.0-75.0) 04/17/17 04:30 Lymph % (Auto) 28.1 % (20.0-40.0) 04/17/17 04:30 [place] % (Auto) 13.6 % (0.0-10.0) H 04/17/17 04:30 Eos % (Auto) 6.0 % (0.0-4.0) H 04/17/17 04:30 Baso % (Auto) 0.8 % (0.0-2.0) 04/17/17 04:30 Neut # 1.8 K/uL (1.8-7.0) 04/17/17 04:30 Lymph # 1.0 K/uL (1.0-4.3) 04/17/17 04:30 [place] # 0.5 K/uL (0.0-0.8) 04/17/17 04:30 Eos # 0.2 K/uL (0.0-0.7) 04/17/17 04:30 Baso # 0.0 K/uL (0.0-0.2) 04/17/17 04:30 Sodium 139 mmol/l (132-148) 04/17/17 04:30 Potassium 4.3 MMOL/L (3.6-5.0) 04/17/17 04:30 Chloride 107 mmol/L (98-107) 04/17/17 04:30 Carbon Dioxide 27 mmol/L (22-30) 04/17/17 04:30 Anion Gap 10 (10-20) 04/17/17 04:30 BUN 15 mg/dl (9-20) 04/17/17 04:30 Creatinine 0.9 mg/dL (0.8-1.5) 04/17/17 04:30 Est GFR ( Amer) > 60 04/17/17 04:30 Est GFR (Non-Af Amer) > 60 04/17/17 04:30 Random Glucose 92 mg/dL (75-110) 04/17/17 04:30 Calcium 8.8 mg/dL (8.4-10.2) 04/17/17 04:30 Magnesium 1.9 MG/DL (1.6-2.3) 04/17/17 04:30 Total Bilirubin 0.5 mg/dl (0.2-1.3) 04/17/17 04:30 AST 40 U/L (17-59) 04/17/17 04:30 ALT 51 U/L (21-72) 04/17/17 04:30 Alkaline Phosphatase 67 U/L (38-126) 04/17/17 04:30 Troponin I < 0.0120 ng/mL (0.00-0.120) 04/16/17 12:10 Total Protein 6.4 G/DL (6.3-8.2) 04/17/17 04:30 Albumin 3.5 g/dL (3.5-5.0) 04/17/17 04:30 Globulin 3.0 gm/dL (2.2-3.9) 04/17/17 04:30 Albumin/Globulin Ratio 1.2 (1.0-2.1) 04/17/17 04:30 Free T4 1.16 ng/dL (0.78-2.19) 04/17/17 04:30 Total T3 0.896 nmol/L (1.49-2.60) L 04/17/17 04:30 TSH 3rd Generation 0.50 mIU/ML (0.46-4.68) 04/17/17 04:30 Urine Opiates Screen Negative (NEGATIVE) 04/16/17 15:30 Urine Methadone Screen Negative (NEGATIVE) 04/16/17 15:30 Ur Barbiturates Screen Negative (NEGATIVE) 04/16/17 15:30 Ur Phencyclidine Scrn Negative (NEGATIVE) 04/16/17 15:30 Ur Amphetamines Screen Negative (NEGATIVE) 04/16/17 15:30 U Benzodiazepines Scrn Negative (NEGATIVE) 04/16/17 15:30 U Oth Cocaine Metabols Negative (NEGATIVE) 04/16/17 15:30 U Cannabinoids Screen Negative (NEGATIVE) 04/16/17 15:30 Alcohol, Quantitative < 10 mg/dl (0-10) 04/16/17 12:10 Discharge Exam - Head Exam Head Exam: ATRAUMATIC, NORMAL INSPECTION, NORMOCEPHALIC Discharge Plan - Follow Up Plan Condition: STABLE Disposition: HOME/ ROUTINE Instructions: Sinusitis (ED), Bradycardia (DC) Additional Instructions: final dx bradycardia Return if not better in 3 days. cleared by cardio hr now in 80s as per rn f/u pmd, rte dprn Referrals: [facility] [Outside] - 04/17/17
== END 2017-04-17 13:55 | disposition home or self-care (01) | DRG 310 ==
LOC: H.ER 11:27 → H.EROBSV 11:47 → OBSVTOIN 15:20 → H.ERHOLD 16:00 → H.ICU/CCU 17:54
PROVIDERS: ADMIT Family Medicine; ATTEND Family Medicine
DX: R00.1 Bradycardia, unspecified (principal); J01.90 Acute sinusitis, unspecified; D72.819 Decreased white blood cell count, unspecified; F20.9 Schizophrenia, unspecified; F17.210 Nicotine dependence, cigarettes, uncomplicated; Z78.1 Physical restraint status; Z59.0 Homelessness

== ENCOUNTER 2018-06-11 15:45 | Emergency (ER) | payer MEDICARE ==
[2018-06-11 15:45] VITALS: BMI 24.4
--- NOTE | 2018-06-11 17:16 | ED PDOC ---
HPI: Wound Care - HPI Time Seen by Provider: 06/11/18 16:44 Chief Complaint (Nursing): Wound Check Chief Complaint (Provider): Wound Check History Per: Patient Exam Limitations: no limitations Onset/Duration Of Symptoms: Unknown Current Symptoms Are (Timing): Still Present Additional Complaint(s): Elia Romero, a 67 year old disheveled undomiciled male with no significant past medical history, present to the ED with wound to lateral right leg. Patient states he is does not know how long he has the wound or how he got the wound. He also describes it as "gnarly". Patient denies fever, rash, and pain elsewhere. PCP: none provided Past Medical History Reviewed: Historical Data, Nursing Documentation, Vital Signs Vital Signs: Last Vital Signs Temp 97.7 F 06/11/18 16:09 Pulse 70 06/11/18 16:09 Resp 18 06/11/18 16:09 BP 143/80 06/11/18 16:09 Pulse Ox 99 06/11/18 16:09 - Medical History PMH: Denies: Diabetes, Hepatitis, HIV, HTN, Seizures, Sexually Transmitted Disease - Family History Family History: States: Unknown Family Hx - Home Medications Home Medications: Ambulatory Orders Medication Instructions Recorded No Known Home Med 04/16/17 - Allergies Allergies/Adverse Reactions: Allergies Allergy/AdvReac Type Severity Reaction Status Date / Time No Known Allergies Allergy Verified 08/23/16 11:53 Review of Systems ROS Statement: Except As Marked, All Systems Reviewed And Found Negative Skin: Positive for: Other (wound right lateral leg) Physical Exam - Reviewed Nursing Documentation Reviewed: Yes Vital Signs Reviewed: Yes - Physical Exam Appears: Positive for: No Acute Distress (patient is disheveled and smells of urine) Cardiovascular/Chest: Positive for: Regular Rate, Rhythm. Negative for: Murmur Respiratory: Positive for: Normal Breath Sounds. Negative for: Respiratory Distress Extremity: Positive for: Other (large open abscess to right lateral leg. Surrounding skin is tense with no palpable fluctuance ) Lymphatic: Positive for: Other (enlarged lymph nodes to right groin) - Laboratory Results Result Diagrams: 06/11/18 17:40 06/11/18 17:40 - ECG O2 Sat by Pulse Oximetry: 99 (RA) Pulse Ox Interpretation: Normal Medical Decision Making Medical Decision Making: Time: 1647 Initial impression: open actively draining wound to right leg. Initial Plan: --labs --wound culture --surgery consult --EKG --UA Scribe Attestation: Documented by Israel Skinner, acting as a scribe for Samira Hall MD. Provider Scribe Attestation: All medical record entries made by the Scribe were at my direction and personally dictated by me. I have reviewed the chart and agree that the record accurately reflects my personal performance of the history, physical exam, medical decision making, and the department course for this patient. I have also personally directed, reviewed, and agree with the discharge instructions and disposition. Pt with normal labs. Pt seen and evaluated by surgery resident. Pt was to have a bedside debridement of the abscress which the pt refused. Pt agrees to PO antibiotics and advised to use warm compresses. Return parameters discussed with the patient including worsened symptoms, fever, pain, drainage etc. Pt expresses understanding that the abscess may not resolve with antibiotics alone and will return to the emergency department if necessary. Disposition - Clinical Impression Clinical Impression: Abscess - Disposition Disposition: Routine/Home Disposition Time: 20:35 Condition: STABLE Additional Instructions: Take antibiotics as prescribed and apply warm compresses to the Return to the emergency department if the infection begins to spread or worsens. Follow up with primary medical doctor. Instructions: Abscess Drainage, Percutaneous (DC) Forms: [employer] ([place]se) Print Language: ALGERIAN
[2018-06-11 17:44] LABS: VENOUS BLOOD GAS BASE EXCESS 3.4 mmol/L (0.0-2.0); VENOUS BLOOD GAS PCO2 50 mmHg (40-60); VENOUS BLOOD GAS PO2 45 mm/Hg (30-55); VENOUS BLOOD PH 7.38 (7.32-7.43)
[2018-06-11 17:53] LABS: BASO % 0.4 % (0.0-2.0); EOS # 0.2 K/uL (0.0-0.7); EOS % 3.1 % (0.0-4.0); HEMOGLOBIN 11.8 g/dL (12.0-18.0); LYMPH # 1.2 K/uL (1.0-4.3); MEAN CELL VOLUME 86.1 fl (80.0-94.0); MEAN CORPUSCULAR HEMOGLOBIN 28.4 pg (27.0-31.0); MEAN PLATELET VOLUME 7.1 fl (7.2-11.7); MONO # 0.5 K/uL (0.0-0.8); MONO % 9.4 % (0.0-10.0); NEUT # 3.1 K/uL (1.8-7.0); NEUT % 63.1 % (50.0-75.0); NRBC % 0.1 % (0.0-0.0); RBC 4.18 Mil/uL (4.40-5.90); RED CELL DISTRIBUTION WIDTH 14.2 % (11.5-14.5); WHITE BLOOD COUNT 4.9 K/uL (4.8-10.8)
[2018-06-11 17:55] LABS: BLOOD UREA NITROGEN 15 mg/dl (9-20); CALCIUM 8.7 mg/dL (8.4-10.2); GFR NON-AFRICAN AMERICAN > 60
--- NOTE | 2018-06-11 20:17 | CP.PCM.CON ---
History of Present Illness - History of Present Illness History of Present Illness: Surgery: Dr. Bolton CC: R thigh Abscess HPI: 67M presents to ED for evaluation of R thigh abscess. Pt is homeless and poor historian. He is unable to provide any information regarding how long he has had this abscess or any associated symptoms. PMH: Unattainable PSH: Unattainable Meds: Unknown NKDA Social: Unattainable Fhx: Unattainable Review of Systems - Review of Systems Systems not reviewed;Unavailable: Uncooperative Past Patient History - Infectious Disease Hx of Infectious Diseases: None - Past Social History Smoking Status: Heavy Smoker > 10 Cigarettes Daily - CARDIAC Hx Hypertension: No - PULMONARY Hx Tuberculosis: No - NEUROLOGICAL Hx Seizures: No - HEMATOLOGICAL/ONCOLOGICAL Hx Human Immunodeficiency Virus (HIV): No - MUSCULOSKELETAL/RHEUMATOLOGICAL Hx Falls: No - GASTROINTESTINAL Hx Gastrointestinal Disorders: No - GENITOURINARY/GYNECOLOGICAL Hx Sexually Transmitted Disorders: No - PSYCHIATRIC Hx Substance Use: Yes Other/Comment: etoh/substance abuse - SURGICAL HISTORY Hx Surgeries: No - ANESTHESIA Hx Anesthesia: No Meds Allergies/Adverse Reactions: Allergies Allergy/AdvReac Type Severity Reaction Status Date / Time No Known Allergies Allergy Verified 08/23/16 11:53 Physical Exam - Constitutional Appears: No Acute Distress, Unkempt, Older Than Stated Age - Head Exam Head Exam: ATRAUMATIC, NORMOCEPHALIC - Eye Exam Eye Exam: EOMI - ENT Exam ENT Exam: Mucous Membranes Moist - Neck Exam Neck exam: Positive for: Full Rom - Respiratory Exam Respiratory Exam: NORMAL BREATHING PATTERN. absent: Accessory Muscle Use, Respiratory Distress - Cardiovascular Exam Cardiovascular Exam: REGULAR RHYTHM - GI/Abdominal Exam GI & Abdominal Exam: Soft. absent: Tenderness - Extremities Exam Additional comments: R thigh abscess, lateral portion 4x4cm, overlying skin is excoriated, yellow/gre en in color, indurated, no fluctuance, no drainage - Psychiatric Exam Psychiatric exam: Flat Affect Results - Vital Signs Recent Vital Signs: Last Vital Signs Temp 97.7 F 06/11/18 16:09 Pulse 70 06/11/18 16:09 Resp 18 06/11/18 16:09 BP 143/80 06/11/18 16:09 Pulse Ox 99 06/11/18 17:23 - Labs Result Diagrams: 06/11/18 17:40 06/11/18 17:40 Labs: Laboratory Results - last 24 hr 06/11/18 06/11/18 06/11/18 17:35 17:40 17:40 WBC 4.9 RBC 4.18 L Hgb 11.8 L Hct 36.0 MCV 86.1 MCH 28.4 MCHC 33.0 RDW 14.2 Plt Count 294 MPV 7.1 L Neut % (Auto) 63.1 Lymph % (Auto) 24.0 [place] % (Auto) 9.4 Eos % (Auto) 3.1 Baso % (Auto) 0.4 Neut # (Auto) 3.1 Lymph # (Auto) 1.2 [place] # (Auto) 0.5 Eos # (Auto) 0.2 Baso # (Auto) 0.0 pO2 45 VBG pH 7.38 VBG pCO2 50 VBG HCO3 27.1 VBG Total CO2 31.1 H VBG O2 Sat (Calc) 84.1 H VBG Base Excess 3.4 H VBG Potassium 3.6 Sodium 139.0 140 Chloride 106.0 108 H Glucose 80 Lactate 1.1 FiO2 21.0 Potassium 3.7 Carbon Dioxide 25 Anion Gap 11 BUN 15 Creatinine 0.8 Est GFR ( Amer) > 60 Est GFR (Non-Af Amer) > 60 Random Glucose 83 Calcium 8.7 Venous Blood Potassium 3.6 Assessment & Plan - Assessment and Plan (Free Text) Assessment: 67M w. R thigh abscess -Abscess requires debridement, patient is currently refusing, it was explained to patient that infection could worsen without proper treatment -Recommend warm compresses 20min TID -antibiotics -will debride if pt is agreeable -d/w attending Katjaitis PGY4
[2018-06-11 22:20] VITALS: BP 141/81; PULSE 76; RESP 17; TEMP 98.3; O2SAT 98
--- NOTE | 2018-06-12 13:35 | CARD ---
APPROVED REPORT Date of service: 06/11/2018 EKG Measurement Heart [id number] <Conclusion> Sinus bradycardia with premature atrial complexes Otherwise normal ECG
== END 2018-06-11 22:00 | disposition home or self-care (01) ==
LOC: H.ER 15:45
DX: L02.415 Cutaneous abscess of right lower limb (principal); Z59.0 Homelessness; F17.210 Nicotine dependence, cigarettes, uncomplicated

== ENCOUNTER 2018-06-14 04:26 | Inpatient (IN) | payer MEDICARE, MEDICAID ==
[2018-06-14 04:51] VITALS: BMI 25.5
[2018-06-14] MEDS ORDERED: Piperacillin/Tazobact 4.5 GM in Sodium Chloride 0.9% 100 ML IVPB STA (05:42)
--- NOTE | 2018-06-14 05:51 | ED PDOC ---
Lower Extremity Pain/Injury Time Seen by Provider: 06/14/18 05:17 Chief Complaint (Nursing): Abnormal Skin Integrity Chief Complaint (Provider): abscess on Right thigh History Per: Patient History/Exam Limitations: no limitations Additional Complaint(s): 67 y/o M with hx of schizophrenia who was seen in ED on 06/11 for wound on Right thigh, found to have abscess and was recommended to have debridement but patient refused. He returns today c/o pain in Right thigh at abscess. States that he never filled prescription for antibiotic b/c he didn't know where to go. Wound culture grew MRSA and blood cultures grew Gram + cocci. Denies fever, chills, night sweats, dizziness. He is willing to have the abscess debrided now. 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 Patient would not elaborate further. Denies SI/HI, auditory/visual hallucinations, depression. Past Medical History Reviewed: Historical Data, Nursing Documentation, Vital Signs Vital Signs: Last Vital Signs Temp 98.9 F 06/14/18 04:51 Pulse 65 06/14/18 04:51 Resp 18 06/14/18 04:51 BP 101/57 L 06/14/18 04:51 Pulse Ox 99 06/14/18 04:51 - Medical History PMH: Schizophrenia Denies: Diabetes, Hepatitis, HIV, HTN, Seizures, Sexually Transmitted Disease - Family History Family History: States: Unknown Family Hx - Social History Current smoker - smoking cessation education provided: No Ex-Smoker (has not smoked in the last 12 months): No Alcohol: None - Home Medications Home Medications: Ambulatory Orders Medication Instructions Recorded No Known Home Med 06/14/18 - Allergies Allergies/Adverse Reactions: Allergies Allergy/AdvReac Type Severity Reaction Status Date / Time No Known Allergies Allergy Verified 06/14/18 04:51 Review of Systems ROS Statement: Except As Marked, All Systems Reviewed And Found Negative Constitutional: Negative for: Fever, Chills, Sweats, Malaise Cardiovascular: Negative for: Chest Pain Respiratory: Negative for: Shortness of Breath Skin: Positive for: Other (abscess on Right thigh) Psych: Negative for: Suicidal ideation Physical Exam - Reviewed Nursing Documentation Reviewed: Yes Vital Signs Reviewed: Yes - Physical Exam Appears: Positive for: Well, Non-toxic Head Exam: Positive for: ATRAUMATIC Skin: Positive for: Normal Color Extremity: Positive for: Normal ROM, Other (approx 4.5-5cm ulceration with purulent drainage, approx 10cm induration around abscess. No increased warmth. ) Neurologic/Psych: Positive for: Alert, Oriented, Mood/Affect (appropriate) - Laboratory Results Result Diagrams: 06/14/18 05:46 06/14/18 05:46 - ECG O2 Sat by Pulse Oximetry: 99 Medical Decision Making Medical Decision Making: Repeat Blood cultures [facility] Surgery consulted - will come evaluate patient for debridement CBC, CMP serum alcohol urine drug screen U/A Admit to Dr. Castillo for abscess and bacteremia. Disposition - Clinical Impression Clinical Impression: Abscess, Bacteremia - Patient ED Disposition Is Patient to be Admitted: Yes Discussed With : Tae Castillo Doctor Will See Patient In The: Hospital - Disposition Disposition: Transfer of Care Disposition Time: 06:30 Condition: GUARDED
[2018-06-14] MEDS ORDERED: Piperacillin/Tazobact 3.375 gm Inj IVPB ONE (06:01)
[2018-06-14] MEDS ORDERED: Vancomycin 1 g Inj ONE (06:07)
[2018-06-14 06:11] LABS: BASO % 0.6 % (0.0-2.0); EOS # 0.2 K/uL (0.0-0.7); EOS % 4.5 % (0.0-4.0); HEMOGLOBIN 11.5 g/dL (12.0-18.0); MEAN CELL VOLUME 86.4 fl (80.0-94.0); MEAN CORPUSCULAR HEMOGLOBIN 27.9 pg (27.0-31.0); MEAN CORPUSCULAR HGB CONC 32.3 g/dL (33.0-37.0); MONO # 0.4 K/uL (0.0-0.8); MONO % 9.9 % (0.0-10.0); NEUT # 2.8 K/uL (1.8-7.0); NRBC % 0.1 % (0.0-0.0); RBC 4.11 Mil/uL (4.40-5.90); WHITE BLOOD COUNT 4.5 K/uL (4.8-10.8)
--- NOTE | 2018-06-14 06:14 | CP.PCM.HP ---
History of Present Illness - History of Present Illness History of Present Illness: PMD: None Chief Complaint: right Thigh abscess The Patient was seen and examined in the ED HPI: The hx was obtained after review of the medical records as the patientis unreliable in his history. He is a 67 years old male who is homeless and has hx of Schizophrenia. He came to the Ed on 06/11/18 with an abscess at the lateral, upper right thigh. He refused I&D and was discharged on antibiotics. He now returns referring worsening of the painful swelling at the right thigh. Blood Cultures from 06/11/18 grew Gm+ve cocci while the wound culture grew MRSA. No fever, chills, Chest pain nor palpitation. PMH: Schizophrenia PSH: Denies SH: Heavy smoker; Drinks Alcohol is homeless Family Hx: State: No Known family hx Allergies: NKDA Medication: None Present on Admission - Present on Admission Any Indicators Present on Admission: No History of DVT/PE: No History of Uncontrolled Diabetes: No Urinary Catheter: No Decubitus Ulcer Present: No Review of Systems - Review of Systems Review of Systems: Review of systems is limited because the patient is a poor historian - Constitutional Constitutional: absent: Fever, Headache - EENT Nose/Mouth/Throat: absent: Epistaxis - Cardiovascular Cardiovascular: Edema - Respiratory Respiratory: absent: Wheezing, Stridor Past Patient History - Infectious Disease Hx of Infectious Diseases: None - Past Medical History & Family History Past Medical History?: No - Past Social History Smoking Status: Heavy Smoker > 10 Cigarettes Daily Chewing Tobacco Use: No Cigar Use: No Alcohol: None Home Situation {Lives}: Homeless - CARDIAC Hx Cardiac Disorders: No Hx Hypertension: No - PULMONARY Hx Respiratory Disorders: No Hx Tuberculosis: No - NEUROLOGICAL Hx Neurological Disorder: No Hx Seizures: No - HEENT Hx HEENT Problems: No - RENAL Hx Chronic Kidney Disease: No - HEMATOLOGICAL/ONCOLOGICAL Hx Blood Disorders: No Hx Human Immunodeficiency Virus (HIV): No - INTEGUMENTARY Hx Dermatological Problems: Yes Other/Comment: right thigh skin ulcer - MUSCULOSKELETAL/RHEUMATOLOGICAL Hx Falls: No - GASTROINTESTINAL Hx Gastrointestinal Disorders: No - GENITOURINARY/GYNECOLOGICAL Hx Genitourinary Disorders: No Hx Sexually Transmitted Disorders: No - PSYCHIATRIC Hx Schizophrenia: Yes - SURGICAL HISTORY Hx Surgeries: No - ANESTHESIA Hx Anesthesia: No Meds Allergies/Adverse Reactions: Allergies Allergy/AdvReac Type Severity Reaction Status Date / Time No Known Allergies Allergy Verified 06/14/18 04:51 Physical Exam - Constitutional Appears: No Acute Distress - Head Exam Head Exam: ATRAUMATIC, NORMAL INSPECTION, NORMOCEPHALIC - Eye Exam Eye Exam: EOMI, Normal appearance Pupil Exam: NORMAL ACCOMODATION - ENT Exam ENT Exam: Mucous Membranes Dry, Mucous Membranes Moist - Neck Exam Neck exam: Positive for: Full Rom, Normal Inspection - Respiratory Exam Respiratory Exam: Clear to Auscultation Bilateral. absent: Rales, Rhonchi, Wheezes - Cardiovascular Exam Cardiovascular Exam: REGULAR RHYTHM, RRR, +S1, +S2 - GI/Abdominal Exam GI & Abdominal Exam: Normal Bowel Sounds, Soft. absent: Mass, Organomegaly, Tenderness - Rectal Exam Rectal Exam: Deferred - Extremities Exam Additional comments: The lateral aspect of the upper right thigh with an a lesion devoid of skin 5cm X3cm surrounded by a raised mass [id number]. mild tenderness. there is minimal secretion from the center region. Bilateral leg edema 2+ - Back Exam Back exam: NORMAL INSPECTION. absent: CVA tenderness (L), CVA tenderness (R) - Neurological Exam Neurological exam: Alert, CN II-XII Intact, Oriented x3, Reflexes Normal - Psychiatric Exam Psychiatric exam: Normal Affect, Normal Mood - Skin Skin Exam: Dry, Normal Color, Warm Results - Vital Signs Recent Vital Signs: Last Vital Signs Temp 98.9 F 06/14/18 04:51 Pulse 65 06/14/18 04:51 Resp 18 06/14/18 04:51 BP 101/57 L 06/14/18 04:51 Pulse Ox 99 06/14/18 05:57 - Labs Result Diagrams: 06/14/18 05:46 06/14/18 05:46 Assessment & Plan - Assessment and Plan (Free Text) Plan: 67 years old male who is homeless and has hx of Schizophrenia. He came to the Ed on 06/11/18 with an abscess at the lateral, upper right thigh. He refused I&D and was discharged on antibiotics. He now returns referring worsening of the painful swelling at the right thigh. Blood Cultures from 06/11/18 grew Gm+ve cocci while the wound culture grew MRSA. #. Right Thigh Abscess infected with MRSA - Consult Surgery Rashi for I&D - Vancomycin/ Zosyn #. Gm+ cocci Bacteremia - Consult ID Dr Rao - Vancomycin/ Zosyn - follow ECHO to r/o Endocarditis #. Anemia - Follow HB #. Schizophrenia - Consult Dr Iniguez of psychiatry #. DVT Prophylaxis with Lovenox after the I&D #. Code Status> Full - Date & Time Date: 06/14/18 Time: 06:13
[2018-06-14 06:22] LABS: ALB/GLOB RATIO 1.2 (1.0-2.1); ALBUMIN 3.5 g/dL (3.5-5.0); ALT/SGPT 43 U/L (21-72); AST/SGOT 35 U/L (17-59); BLOOD UREA NITROGEN 17 mg/dl (9-20); CALCIUM 8.9 mg/dL (8.4-10.2); GFR NON-AFRICAN AMERICAN > 60
[2018-06-14] MEDS ORDERED: Epinephrine /Lidocaine HCL 1:100,000/2% 30 ml INJ ONE (07:41)
--- NOTE | 2018-06-14 07:50 | ED PDOC ---
- Laboratory Results Result Diagrams: 06/14/18 05:46 06/14/18 05:46 - ECG O2 Sat by Pulse Oximetry: 99 (RA) Pulse Ox Interpretation: Normal Medical Decision Making Medical Decision Makin:48 Patient is becoming agitated, throwing equipment around in the room and threatening the staff. Patient has to be restrained and was given Aldol and Benadryl IM. [place] [employer] was called. Scribe Attestation: Documented by Tyler Weinstein, acting as a scribe for Madie Arzate MD. Provider Scribe Attestation: All medical record entries made by the Scribe were at my direction and personally dictated by me. I have reviewed the chart and agree that the record accurately reflects my personal performance of the history, physical exam, medic al decision making, and the department course for this patient. I have also personally directed, reviewed, and agree with the discharge instructions and disposition. Disposition - Clinical Impression Clinical Impression: Abscess, Bacteremia - Disposition Condition: GUARDED
[2018-06-14] MEDS ORDERED: Lidocaine 1% w Epi 1:100,000 Inj ONE (07:54)
[2018-06-14] MEDS ORDERED: Povidone Iodine Topical 10% Sol ONE ×2 (07:54→12:22)
[2018-06-14 08:13] LABS: PROTHROMBIN TIME 11.8 Seconds (9.8-13.1)
[2018-06-14 08:16] LABS: PARTIAL THROMBOPLASTIN TIME 30.7 Seconds (25.6-37.1)
--- NOTE | 2018-06-14 08:25 | CP.PCM.CON ---
History of Present Illness - History of Present Illness History of Present Illness: Surgery: Dr. Bolton CC: R thigh abscess HPI: 67M w. pmh of schizophrenia presents for evaluation of R thigh abscess. Pt was previously seen in ED on 06/11 for abscess at which time he refused debridement. Pt states he's unsure how long he's had abscess for. He states that it is painful and has occassional drainage. Pt is agreeable to bedside debridement. PMH: schizophrenia PSH: none Meds: MAR reviewed NKDA Social: +ETOH/Tobacco Fhx: Non-contributory Review of Systems - Review of Systems All systems: reviewed and no additional remarkable complaints except (HPI) Past Patient History - Infectious Disease Hx of Infectious Diseases: None - Past Social History Alcohol: None - CARDIAC Hx Hypertension: No - PULMONARY Hx Tuberculosis: No - NEUROLOGICAL Hx Seizures: No - HEMATOLOGICAL/ONCOLOGICAL Hx Human Immunodeficiency Virus (HIV): No - INTEGUMENTARY Hx Dermatological Problems: Yes Other/Comment: right thigh skin ulcer - MUSCULOSKELETAL/RHEUMATOLOGICAL Hx Falls: No - GASTROINTESTINAL Hx Gastrointestinal Disorders: No - GENITOURINARY/GYNECOLOGICAL Hx Sexually Transmitted Disorders: No - PSYCHIATRIC Hx Schizophrenia: Yes - SURGICAL HISTORY Hx Surgeries: No - ANESTHESIA Hx Anesthesia: No Meds Allergies/Adverse Reactions: Allergies Allergy/AdvReac Type Severity Reaction Status Date / Time No Known Allergies Allergy Verified 06/14/18 04:51 - Medications Medications: Current Medications Enoxaparin Sodium (Lovenox) 40 mg SC DAILY [facility]; Protocol Vancomycin HCl 1 gm/ Sodium (Chloride) 250 mls @ 166.667 mls/hr IVPB Q12 [facility]; Protocol Piperacillin Sod/Tazobactam (Sod 3.375 gm/ Sodium Chloride) 100 mls @ 100 mls/hr IVPB Q6 [facility]; Protocol Physical Exam - Constitutional Appears: Non-toxic, No Acute Distress - Head Exam Head Exam: ATRAUMATIC, NORMOCEPHALIC - Eye Exam Eye Exam: EOMI - ENT Exam ENT Exam: Mucous Membranes Moist - Respiratory Exam Respiratory Exam: NORMAL BREATHING PATTERN. absent: Accessory Muscle Use, Respiratory Distress - GI/Abdominal Exam GI & Abdominal Exam: Soft. absent: Tenderness - Extremities Exam Additional comments: R lateral thigh abscess ~4x4cm indurated, no fluctuance, tender, no drainage, overlying tissue sheehan/necrotic - Neurological Exam Neurological exam: Alert, Oriented x3 Results - Vital Signs Recent Vital Signs: Last Vital Signs Temp 98.9 F 06/14/18 04:51 Pulse 65 06/14/18 04:51 Resp 18 06/14/18 04:51 BP 101/57 L 06/14/18 04:51 Pulse Ox 99 06/14/18 07:50 - Labs Result Diagrams: 06/14/18 05:46 06/14/18 05:46 Labs: Laboratory Results - last 24 hr 06/14/18 06/14/18 06/14/18 05:46 05:46 05:46 WBC 4.5 L RBC 4.11 L Hgb 11.5 L Hct 35.5 MCV 86.4 MCH 27.9 MCHC 32.3 L RDW 14.0 Plt Count 288 MPV 7.0 L Neut % (Auto) 63.0 Lymph % (Auto) 22.0 [place] % (Auto) 9.9 Eos % (Auto) 4.5 H Baso % (Auto) 0.6 Neut # (Auto) 2.8 Lymph # (Auto) 1.0 [place] # (Auto) 0.4 Eos # (Auto) 0.2 Baso # (Auto) 0.0 PT INR APTT Sodium 142 Potassium 4.1 Chloride 106 Carbon Dioxide 26 Anion Gap 14 BUN 17 Creatinine 0.9 Est GFR ( Amer) > 60 Est GFR (Non-Af Amer) > 60 Random Glucose 91 Lactic Acid 0.7 Calcium 8.9 Total Bilirubin 0.3 AST 35 ALT 43 Alkaline Phosphatase 62 Total Protein 6.4 Albumin 3.5 Globulin 2.9 Albumin/Globulin Ratio 1.2 Alcohol, Quantitative < 10 06/14/18 07:53 WBC RBC Hgb Hct MCV MCH MCHC RDW Plt Count MPV Neut % (Auto) Lymph % (Auto) Freestone % (Auto) Eos % (Auto) Baso % (Auto) Neut # (Auto) Lymph # (Auto) [place] # (Auto) Eos # (Auto) Baso # (Auto) PT 11.8 INR 1.0 APTT 30.7 Sodium Potassium Chloride Carbon Dioxide Anion Gap BUN Creatinine Est GFR ( Amer) Est GFR (Non-Af Amer) Random Glucose Lactic Acid Calcium Total Bilirubin AST ALT Alkaline Phosphatase Total Protein Albumin Globulin Albumin/Globulin Ratio Alcohol, Quantitative Assessment & Plan - Assessment and Plan (Free Text) Assessment: 67M w. R thigh abscess -Debride at bedside -Pack with betadine soaked kerlex daily -abx -d/w attending Eframaitis PGY4 - Incision & Drainage Of Abscess Anesthesia: Lidocaine 1% (10cc), With Epi Used During Procedure: Continuous Pulse Oximetry Prep Used: Betadine Procedure: Incised W/Scalpel Blade#: (Abscess was sharply debrided w. scissors, no pus was drained, necrotic tissue was removed until beefy red base was visible), Irrigated Cavity W/Saline, Packed W/Gauze
[2018-06-14] MEDS: Enoxaparin 40 mg Syringe SC SCH (09:12)
--- NOTE | 2018-06-14 10:08 | CT ---
Date of service: 06/14/2018 PROCEDURE: CT HEAD WITHOUT CONTRAST. HISTORY: s/p fall at home COMPARISON: Noncontrast head CT 04/16/2017. TECHNIQUE: Axial computed tomography images were obtained through the head/brain without intravenous contrast. Radiation dose: Total exam DLP = 929.74 mGy-cm. This CT exam was performed using one or more of the following dose reduction techniques: Automated exposure control, adjustment of the mA and/or kV according to patient size, and/or use of iterative reconstruction technique. FINDINGS: HEMORRHAGE: No intracranial hemorrhage. BRAIN: Good corticomedullary differentiation is seen. Reiterated mild proportional, diffuse expansion of the ventriculosulcal and cisternal spaces is appreciated with white matter lucency compatible with diffuse cerebral atrophy and chronic microangiopathy. No suspicious extra-axial fluid collection is identified and the midline brain anatomy appears grossly nonfocal as imaged. There is no mass effect throughout. VENTRICLES: Unremarkable. No hydrocephalus. CALVARIUM: No destructive bony lesion or displaced fracture identified including through the skullbase. PARANASAL SINUSES: Trace left maxillary sinusitis identified. MASTOID AIR CELLS: Unremarkable as visualized. No inflammatory changes. OTHER FINDINGS: None. IMPRESSION: Stable limited age-related neuro degenerative findings without acute changes by standard CT criteria. Follow-up CT or MRI are available if clinically warranted. No fracture identified grossly.
--- NOTE | 2018-06-14 10:13 | PCM.PROC ---
Procedure: Blank - Time Time Performed: 07:55 - Time Out Time Out: Side verified, Site verified, Patient ID confirmed, Sterile procedures obs. - Procedure Procedure:: bedside debridement - Consent obtained: Consent obtained: Written - Performed by: Performed by:: Attending physician - Indications Indications(s):: necrotic tissue in wound - Contraindications: Contraindications:: None - Anesthetic Technique Anesthetic Technique: Local - Topical: Local/Regional Anesthetic:: Lidocaine 1% w/epi - Patient Position Patient Position:: Supine
[2018-06-14] MEDS: Piperacillin/Tazobact 3.375 GM in Sodium Chloride 0.9% 100 ML IVPB SCH ×3 (16:22→23:19)
--- NOTE | 2018-06-14 16:53 | CARD ---
APPROVED REPORT Date of service: 06/14/2018 EXAM: Two-dimensional and M-mode echocardiogram with Doppler and color Doppler. Other Information Quality : GoodRhythm : NSR INDICATION Infection: Bacteremia 2D DIMENSIONS IVSd1.12 (0.7-1.1cm)LVDd4.59 (3.9-5.9cm) LVOT Diameter2.38 (1.8-2.4cm)PWd0.97 (0.7-1.1cm) IVSs2.11 (0.8-1.2cm)LVDs3.06 (2.5-4.0cm) FS (%) 33.2 %PWs1.76 (0.8-1.2cm) M-Mode DIMENSIONS Left Atrium (MM)5.21 (2.5-4.0cm)IVSd0.97 (0.7-1.1cm) Aortic Root3.03 (2.2-3.7cm)LVDd4.91 (4.0-5.6cm) Aortic Cusp Exc.2.26 (1.5-2.0cm)PWd1.02 (0.7-1.1cm) IVSs1.38 cmFS (%) 38 % LVDs3.06 (2.0-3.8cm)PWs1.57 cm Aortic Valve AoV Peak Ktuvmqev64.1cm/sAoV VTI22.6cmAO Peak GR.4mmHg LVOT Peak Sissainy56.4cm/sLVOT VTI18.45cmAO Mean GR.2mmHg GUANAKO (VMAX)1.93kt1ENJ (VTI)1.60cm2 Mitral Valve MV E Vplpgmcw53.8cm/sMV DECEL [id number] A Udorkzay21.3cm/s MV FOC88njE/A ratio1.4MVA (PHT)3.24cm2 TDI Lateral E' Peak V14.42cm/sMedial E' Peak V10.02cm/sE/Lateral E'5.5 E/Medial E'8.0 Tricuspid Valve TR Peak Diclryvg214tj/sRAP JBEKYKBP01piRvVI Peak Gr.22mmHg [id number] LEFT VENTRICLE The left ventricle is normal size. There is normal left ventricular wall thickness. The left ventricular systolic function is normal. The estimated ejection fraction is 60-65% No regional wall motion abnormalities noted.. Transmitral Doppler flow pattern is Grade II-pseudonormal filling dynamics. No left ventricle thrombus noted on this study. There is no ventricular septal defect visualized. There is no left ventricular aneurysm. There is no mass noted in the left ventricle. RIGHT VENTRICLE The right ventricle is normal size. There is normal right ventricular wall thickness. The right ventricular systolic function is normal. ATRIA The left atrium is mildly dilated. The right atrium size is normal. The interatrial septum is intact with no evidence for an atrial septal defect. AORTIC VALVE The aortic valve is normal in structure. No aortic regurgitation is present. There is no aortic valvular stenosis. There is no aortic valvular vegetation. MITRAL VALVE The mitral valve is normal in structure. There is no evidence of mitral valve prolapse. There is no mitral valve stenosis. There is mild mitral valve regurgitation noted. TRICUSPID VALVE The tricuspid valve is normal in structure. There is mild tricuspid valve regurgitation noted. RVSP is calculated at 32 mm Hg. There is no tricuspid valve prolapse or vegetation. There is no tricuspid valve stenosis. PULMONIC VALVE The pulmonary valve is normal in structure. There is no pulmonic valvular regurgitation. There is no pulmonic valvular stenosis. GREAT VESSELS The aortic root is normal in size. The ascending aorta is normal in size. The pulmonary artery is normal. The IVC is mildly dilated PERICARDIAL EFFUSION There is no pericardial effusion. There is no pleural effusion. <Conclusion> The estimated ejection fraction is 60-65% Transmitral Doppler flow pattern is Grade II-pseudonormal filling dynamics. The left atrium is mildly dilated. There is mild mitral valve regurgitation noted. There is mild tricuspid valve regurgitation noted. RVSP is calculated at 32 mm Hg. The IVC is mildly dilated No evidence of endocarditis. Correlate clinically.
[2018-06-14] MEDS ORDERED: Influenza Vaccine 60 MCG/0.5 ML SYR (3 yr & up) IM ONE (18:47)
[2018-06-14] MEDS ORDERED: Pneumococcal 23-Valent Vaccine IM ONE (18:48)
[2018-06-14 19:10] LABS: BARBITURATES, UR NEGATIVE (NEGATIVE); BENZODIAZEPINES, UR NEGATIVE (NEGATIVE); OPIATES, UR NEGATIVE (NEGATIVE)
[2018-06-14 19:24] LABS: PHENCYCLIDINE, UR NEGATIVE (NEGATIVE)
[2018-06-15 00:42] VITALS: RESP 20
[2018-06-15] MEDS: Piperacillin/Tazobact 3.375 GM in Sodium Chloride 0.9% 100 ML IVPB SCH ×4 (04:32→21:13)
[2018-06-15] MEDS ORDERED: Povidone Iodine Topical 10% Sol ONE (06:53)
--- NOTE | 2018-06-15 07:18 | CP.PCM.PN ---
Subjective - Date & Time of Evaluation Date of Evaluation: 06/15/18 Time of Evaluation: 07:16 - Subjective Subjective: Surgery Pt seen and examined. Pt underwent bedside I & D and wound debridement yesterday and toleated it well. Echo was done and no v egetation shown . Denies fever, nausea, diarrhea, CP , SOB. Objective - Vital Signs/Intake and Output Vital Signs (last 24 hours): Temp Pulse Resp BP Pulse Ox 98.2 F 61 20 116/57 L 100 06/14/18 23:46 06/14/18 23:46 06/14/18 23:46 06/14/18 23:46 06/14/18 23:46 - Medications Medications: Current Medications Enoxaparin Sodium (Lovenox) 40 mg SC DAILY [facility]; Protocol Last Admin: 06/14/18 09:12 Dose: 40 mg Vancomycin HCl 1 gm/ Sodium (Chloride) 250 mls @ 166.667 mls/hr IVPB Q12 [facility]; Protocol Last Admin: 06/14/18 18:09 Dose: 166.667 mls/hr Piperacillin Sod/Tazobactam (Sod 3.375 gm/ Sodium Chloride) 100 mls @ 100 mls/hr IVPB Q6 [facility]; Protocol Last Admin: 06/15/18 04:32 Dose: 100 mls/hr Thiamine HCl (Vitamin B1 Tab) 100 mg PO DAILY [facility] Last Admin: 06/14/18 17:19 Dose: 100 mg - Labs Labs: 06/14/18 05:46 06/14/18 05:46 PT 11.8 Seconds (9.8-13.1) 06/14/18 07:53 INR 1.0 06/14/18 07:53 APTT 30.7 Seconds (25.6-37.1) 06/14/18 07:53 - Constitutional Appears: In Acute Distress - Head Exam Head Exam: ATRAUMATIC, NORMAL INSPECTION, NORMOCEPHALIC - Eye Exam Eye Exam: EOMI, Normal appearance, PERRL Pupil Exam: NORMAL ACCOMODATION, PERRL - ENT Exam ENT Exam: Mucous Membranes Moist - Neck Exam Neck Exam: Normal Inspection - Respiratory Exam Respiratory Exam: NORMAL BREATHING PATTERN - Cardiovascular Exam Cardiovascular Exam: REGULAR RHYTHM - GI/Abdominal Exam GI & Abdominal Exam: Soft. absent: Tenderness - Exam Exam: NORMAL INSPECTION - Extremities Exam Extremities Exam: Full ROM, Normal Capillary Refill, Tenderness. absent: Normal Inspection Additional comments: R lateral thigh has beefy red [id number] wound. No drainage. - Neurological Exam Neurological Exam: Alert, Awake, Normal Gait - Psychiatric Exam Psychiatric exam: Normal Affect, Normal Mood - Skin Skin Exam: Normal Color, Warm. absent: Intact Assessment and Plan - Assessment and Plan (Free Text) Assessment: POD 1 s/p wound debridment and I & D of R thigh abscess -Local wound care w medihoney or betadine and apply dressing -ABX for Bacteremia -f/u CX WIll DW Dr. Garduno
[2018-06-15] MEDS: Enoxaparin 40 mg Syringe SC SCH (10:09)
--- NOTE | 2018-06-15 10:22 | CP.PCM.PN ---
<Luis Angel Aranda - Last Filed: 06/15/18 10:37> Subjective - Date & Time of Evaluation Date of Evaluation: 06/15/18 Time of Evaluation: 10:10 - Subjective Subjective: 67 years old male patient seen and evaluated at the bedside for lateral, upper right thigh abscess. 1 day S/P bedside I&D. Patient had bedside I&D. Patient states that he is better today. He states that the pain in his right thigh went down. Patient denies any overnight fever, chills, nausea, vomiting, Chest pain nor palpitation. Objective - Vital Signs/Intake and Output Vital Signs (last 24 hours): Temp Pulse Resp BP Pulse Ox 98.7 F 71 20 115/71 97 06/15/18 07:56 06/15/18 07:56 06/15/18 07:56 06/15/18 07:56 06/15/18 07:56 - Medications Medications: Current Medications Enoxaparin Sodium (Lovenox) 40 mg SC DAILY [facility]; Protocol Last Admin: 06/14/18 09:12 Dose: 40 mg Vancomycin HCl 1 gm/ Sodium (Chloride) 250 mls @ 166.667 mls/hr IVPB Q12 [facility]; Protocol Last Admin: 06/14/18 18:09 Dose: 166.667 mls/hr Piperacillin Sod/Tazobactam (Sod 3.375 gm/ Sodium Chloride) 100 mls @ 100 mls/hr IVPB Q6 [facility]; Protocol Last Admin: 06/15/18 04:32 Dose: 100 mls/hr Thiamine HCl (Vitamin B1 Tab) 100 mg PO DAILY [facility] Last Admin: 06/14/18 17:19 Dose: 100 mg - Labs Labs: 06/14/18 05:46 06/14/18 05:46 PT 11.8 Seconds (9.8-13.1) 06/14/18 07:53 INR 1.0 06/14/18 07:53 APTT 30.7 Seconds (25.6-37.1) 06/14/18 07:53 - Constitutional Appears: Well, No Acute Distress - Head Exam Head Exam: ATRAUMATIC, NORMOCEPHALIC - Eye Exam Eye Exam: EOMI, Normal appearance, PERRL Pupil Exam: NORMAL ACCOMODATION, PERRL - ENT Exam ENT Exam: Mucous Membranes Moist, Normal Exam - Neck Exam Neck Exam: Full ROM, Normal Inspection - Respiratory Exam Respiratory Exam: Clear to Ausculation Bilateral - Cardiovascular Exam Cardiovascular Exam: REGULAR RHYTHM, RRR - GI/Abdominal Exam GI & Abdominal Exam: Soft, Normal Bowel Sounds - Extremities Exam Extremities Exam: Normal Capillary Refill Additional comments: The lateral aspect of the upper right thigh has an I&D drainage opening which is packed with betadine soaked kerlix and surrounded by area of erythema Bilateral leg edema 2+ - Back Exam Back Exam: NORMAL INSPECTION - Neurological Exam Neurological Exam: Alert, Awake, Oriented x3 Neuro motor strength exam: Left Upper Extremity: 5, Right Upper Extremity: 5, Left Lower Extremity: 5, Right Lower Extremity: 5 - Skin Skin Exam: Dry, Intact, Normal Color, Warm Assessment and Plan - Assessment and Plan (Free Text) Assessment: 67 years old male patient seen and evaluated at the bedside for lateral, upper right thigh abscess. 1 day S/P bedside I&D. Plan: # Right Thigh Abscess infected with MRSA - Consult Surgery, reccs appreciated. - 1 day S/P bedside I&D. - Vancomycin/ Zosyn # Gm+ cocci Bacteremia - Consult ID, reccs appreciated - Vancomycin/ Zosyn - ECHO; no evidence of Endocarditis # Anemia - Follow Hb; 11.5 # Schizophrenia - Consult Dr Iniguez of psychiatry; pending # DVT Prophylaxis - Lovenox 40 mg SC QD # Code Status - Full <Lor Barksdale - Last Filed: 06/15/18 15:48> Objective - Vital Signs/Intake and Output Vital Signs (last 24 hours): Temp Pulse Resp BP Pulse Ox 98.7 F 71 20 115/71 97 06/15/18 07:56 06/15/18 07:56 06/15/18 07:56 06/15/18 07:56 06/15/18 07:56 - Medications Medications: Current Medications Enoxaparin Sodium (Lovenox) 40 mg SC DAILY [facility]; Protocol Last Admin: 06/15/18 10:09 Dose: 40 mg Vancomycin HCl 1 gm/ Sodium (Chloride) 250 mls @ 166.667 mls/hr IVPB Q12 [facility]; Protocol Last Admin: 06/15/18 10:10 Dose: 166.667 mls/hr Piperacillin Sod/Tazobactam (Sod 3.375 gm/ Sodium Chloride) 100 mls @ 100 mls/hr IVPB Q6 [facility]; Protocol Last Admin: 06/15/18 10:09 Dose: 100 mls/hr Thiamine HCl (Vitamin B1 Tab) 100 mg PO DAILY [facility] Last Admin: 06/15/18 10:10 Dose: 100 mg - Labs Labs: 06/14/18 05:46 06/14/18 05:46 PT 11.8 Seconds (9.8-13.1) 06/14/18 07:53 INR 1.0 06/14/18 07:53 APTT 30.7 Seconds (25.6-37.1) 06/14/18 07:53 Attending/Attestation - Attestation I have personally seen and examined this patient.: Yes I have fully participated in the care of the patient.: Yes I have reviewed all pertinent clinical information, including history, physical exam and plan: Yes Notes (Text): MRSA Thigh Abscess s/p Incision drainage - pt on IV Vanco Streptococci Bacteremia - IV Vanco x 14 days as rec by Dr Rao
--- NOTE | 2018-06-15 11:26 | CP.PCM.CON ---
History of Present Illness - History of Present Illness History of Present Illness: consult requested for capacity to make decision in reference to medical treatment pt is a 67 years old male who is homeless and has hx of Schizophrenia. He came to the Ed on 06/11/18 with an abscess at the lateral, upper right thigh. pt on evaluation, calm cooperative good eye contact , mood reported fine appropriate affect , pt denied any current suicidal or homicidal ideation denied perceptual disturbances, non elicited , pt is however confused, oriented to person only, not oriented to place or time, pt unable to verbalize the nature of the medical treatment needed for his abcess, unable to verbalize risks versus benefits and unable to retain information Past Patient History - Infectious Disease Hx of Infectious Diseases: None - Past Medical History & Family History Past Medical History?: No - Past Social History Smoking Status: Heavy Smoker > 10 Cigarettes Daily - CARDIAC Hx Cardiac Disorders: No Hx Hypertension: No - PULMONARY Hx Respiratory Disorders: No Hx Tuberculosis: No - NEUROLOGICAL Hx Neurological Disorder: No Hx Seizures: No - HEENT Hx HEENT Problems: No - RENAL Hx Chronic Kidney Disease: No - ENDOCRINE/METABOLIC Hx Endocrine Disorders: No - HEMATOLOGICAL/ONCOLOGICAL Hx Blood Disorders: No Hx AIDS: No Hx Human Immunodeficiency Virus (HIV): No - INTEGUMENTARY Hx Dermatological Problems: Yes Other/Comment: right thigh skin ulcer - MUSCULOSKELETAL/RHEUMATOLOGICAL Hx Musculoskeletal Disorders: No Hx Falls: No - GASTROINTESTINAL Hx Gastrointestinal Disorders: No - GENITOURINARY/GYNECOLOGICAL Hx Genitourinary Disorders: No Hx Sexually Transmitted Disorders: No - PSYCHIATRIC Hx Psychophysiologic Disorder: Yes Hx Schizophrenia: Yes Hx Substance Use: No - SURGICAL HISTORY Hx Surgeries: No - ANESTHESIA Hx Anesthesia: No Meds Allergies/Adverse Reactions: Allergies Allergy/AdvReac Type Severity Reaction Status Date / Time No Known Allergies Allergy Verified 06/14/18 04:51 - Medications Medications: Current Medications Enoxaparin Sodium (Lovenox) 40 mg SC DAILY [facility]; Protocol Last Admin: 06/15/18 10:09 Dose: 40 mg Vancomycin HCl 1 gm/ Sodium (Chloride) 250 mls @ 166.667 mls/hr IVPB Q12 [facility]; Protocol Last Admin: 06/15/18 10:10 Dose: 166.667 mls/hr Piperacillin Sod/Tazobactam (Sod 3.375 gm/ Sodium Chloride) 100 mls @ 100 mls/hr IVPB Q6 [facility]; Protocol Last Admin: 06/15/18 10:09 Dose: 100 mls/hr Thiamine HCl (Vitamin B1 Tab) 100 mg PO DAILY [facility] Last Admin: 06/15/18 10:10 Dose: 100 mg Results - Vital Signs Recent Vital Signs: Last Vital Signs Temp 98.7 F 06/15/18 07:56 Pulse 71 06/15/18 07:56 Resp 20 06/15/18 07:56 BP 115/71 06/15/18 07:56 Pulse Ox 97 06/15/18 07:56 - Labs Result Diagrams: 06/14/18 05:46 06/14/18 05:46 Labs: Laboratory Results - last 24 hr 06/14/18 18:42 Urine Opiates Screen Negative Urine Methadone Screen Negative Ur Barbiturates Screen Negative Ur Phencyclidine Scrn Negative Ur Amphetamines Screen Negative U Benzodiazepines Scrn Negative U Oth Cocaine Metabols Negative U Cannabinoids Screen Negative Assessment & Plan - Assessment and Plan (Free Text) Assessment: schizophrenia residual type Plan: pt at current mental status does not have capacity to make decision in reference to his treatment
--- NOTE | 2018-06-15 14:57 | CP.PCM.CON ---
History of Present Illness - History of Present Illness History of Present Illness: 67 y old man with presented with abscess right lateral thigh and refused treatment. Blood culture and wound culture came positive for strep in blood and MRSA in wound culture. I & D has been done. Pt is afebrile and ECHO is negative. Past Patient History - Infectious Disease Hx of Infectious Diseases: None - Past Medical History & Family History Past Medical History?: No - Past Social History Smoking Status: Heavy Smoker > 10 Cigarettes Daily - CARDIAC Hx Cardiac Disorders: No Hx Hypertension: No - PULMONARY Hx Respiratory Disorders: No Hx Tuberculosis: No - NEUROLOGICAL Hx Neurological Disorder: No Hx Seizures: No - HEENT Hx HEENT Problems: No - RENAL Hx Chronic Kidney Disease: No - ENDOCRINE/METABOLIC Hx Endocrine Disorders: No - HEMATOLOGICAL/ONCOLOGICAL Hx Blood Disorders: No Hx AIDS: No Hx Human Immunodeficiency Virus (HIV): No - INTEGUMENTARY Hx Dermatological Problems: Yes Other/Comment: right thigh skin ulcer - MUSCULOSKELETAL/RHEUMATOLOGICAL Hx Musculoskeletal Disorders: No Hx Falls: No - GASTROINTESTINAL Hx Gastrointestinal Disorders: No - GENITOURINARY/GYNECOLOGICAL Hx Genitourinary Disorders: No Hx Sexually Transmitted Disorders: No - PSYCHIATRIC Hx Psychophysiologic Disorder: Yes Hx Schizophrenia: Yes Hx Substance Use: No - SURGICAL HISTORY Hx Surgeries: No - ANESTHESIA Hx Anesthesia: No Meds Allergies/Adverse Reactions: Allergies Allergy/AdvReac Type Severity Reaction Status Date / Time No Known Allergies Allergy Verified 06/14/18 04:51 - Medications Medications: Current Medications Enoxaparin Sodium (Lovenox) 40 mg SC DAILY [facility]; Protocol Last Admin: 06/15/18 10:09 Dose: 40 mg Vancomycin HCl 1 gm/ Sodium (Chloride) 250 mls @ 166.667 mls/hr IVPB Q12 [facility]; P rotocol Last Admin: 06/15/18 10:10 Dose: 166.667 mls/hr Piperacillin Sod/Tazobactam (Sod 3.375 gm/ Sodium Chloride) 100 mls @ 100 mls/hr IVPB Q6 [facility]; Protocol Last Admin: 06/15/18 10:09 Dose: 100 mls/hr Thiamine HCl (Vitamin B1 Tab) 100 mg PO DAILY [facility] Last Admin: 06/15/18 10:10 Dose: 100 mg Physical Exam - Cardiovascular Exam Additional comments: no murmurs - Extremities Exam Additional comments: right thigh abscess drained area with no discharge and looks clean. Results - Vital Signs Recent Vital Signs: Last Vital Signs Temp 98.7 F 06/15/18 07:56 Pulse 71 06/15/18 07:56 Resp 20 06/15/18 07:56 BP 115/71 06/15/18 07:56 Pulse Ox 97 06/15/18 07:56 - Labs Result Diagrams: 06/14/18 05:46 06/14/18 05:46 Labs: Laboratory Results - last 24 hr 06/14/18 18:42 Urine Opiates Screen Negative Urine Methadone Screen Negative Ur Barbiturates Screen Negative Ur Phencyclidine Scrn Negative Ur Amphetamines Screen Negative U Benzodiazepines Scrn Negative U Oth Cocaine Metabols Negative U Cannabinoids Screen Negative Assessment & Plan - Assessment and Plan (Free Text) Assessment: #1 Strep bacteremia. Continue Vancomycin # 09/09 #2 MRSA wound s/p I & D. vancomycin provides coverage
[2018-06-16] MEDS: Piperacillin/Tazobact 3.375 GM in Sodium Chloride 0.9% 100 ML IVPB SCH (03:36)
[2018-06-16 06:15] LABS: HEMOGLOBIN 12.1 g/dL (12.0-18.0); MEAN CELL VOLUME 85.6 fl (80.0-94.0); MEAN CORPUSCULAR HEMOGLOBIN 28.3 pg (27.0-31.0); MEAN CORPUSCULAR HGB CONC 33.1 g/dL (33.0-37.0); RBC 4.28 Mil/uL (4.40-5.90); RED CELL DISTRIBUTION WIDTH 14.2 % (11.5-14.5); WHITE BLOOD COUNT 6.3 K/uL (4.8-10.8)
[2018-06-16 06:33] LABS: BLOOD UREA NITROGEN 14 mg/dl (9-20); CALCIUM 8.8 mg/dL (8.4-10.2); GFR NON-AFRICAN AMERICAN > 60
--- NOTE | 2018-06-16 07:22 | CP.PCM.PN ---
Subjective - Date & Time of Evaluation Date of Evaluation: 06/16/18 Time of Evaluation: 07:05 - Subjective Subjective: general Surgery: Juanas Patient seen and examined thsi am at bedside. NAEO per nursing. Dressing changed at bedside. Patient has no complaints and denies f/c, n/v, increasing thigh pain, SOB, CP and abdominal pain. Objective - Vital Signs/Intake and Output Vital Signs (last 24 hours): Temp Pulse Resp BP Pulse Ox 98.7 F 64 20 135/71 95 06/16/18 01:39 06/16/18 01:39 06/16/18 01:39 06/16/18 01:39 06/16/18 01:39 - Medications Medications: Current Medications Enoxaparin Sodium (Lovenox) 40 mg SC DAILY [facility]; Protocol Last Admin: 06/15/18 10:09 Dose: 40 mg Vancomycin HCl 1 gm/ Sodium (Chloride) 250 mls @ 166.667 mls/hr IVPB Q12 [facility]; Protocol Last Admin: 06/15/18 22:48 Dose: 166.667 mls/hr Thiamine HCl (Vitamin B1 Tab) 100 mg PO DAILY [facility] Last Admin: 06/15/18 10:10 Dose: 100 mg - Labs Labs: 06/16/18 05:45 06/16/18 05:45 PT 11.8 Seconds (9.8-13.1) 06/14/18 07:53 INR 1.0 06/14/18 07:53 APTT 30.7 Seconds (25.6-37.1) 06/14/18 07:53 - Constitutional Appears: Well, Non-toxic, No Acute Distress, Unkempt - Head Exam Head Exam: ATRAUMATIC, NORMOCEPHALIC - ENT Exam ENT Exam: Mucous Membranes Moist - Respiratory Exam Respiratory Exam: NORMAL BREATHING PATTERN - Cardiovascular Exam Cardiovascular Exam: REGULAR RHYTHM - GI/Abdominal Exam GI & Abdominal Exam: Soft. absent: Distended, Guarding, Tenderness - Extremities Exam Additional comments: 4 cm x 2.5 cm shallow wound with healthy well granulated wound bed, no necrotic or fibrinous material, no purulent drainage expressed, minimal induration at the borders - Neurological Exam Neurological Exam: Alert, Awake, Oriented x3 - Psychiatric Exam Psychiatric exam: Normal Affect, Normal Mood - Skin Skin Exam: Dry, Intact, Normal Color, Warm Assessment and Plan - Assessment and Plan (Free Text) Assessment: 67 yr old male with right lateral thigh abscess/ necrotic wound. s/p bedside debridement POD 2 Plan: c/w abx c/w dressing changes pain control d/w Dr. Hoang Jsoe, PGY 1
[2018-06-16 08:27] VITALS: O2SAT 98
--- NOTE | 2018-06-16 10:49 | CP.PCM.PN ---
<Luis Angel Aranda - Last Filed: 06/16/18 10:36> Subjective - Date & Time of Evaluation Date of Evaluation: 06/16/18 Time of Evaluation: 10:36 - Subjective Subjective: 67 years old male patient seen and evaluated at the bedside for lateral, upper right thigh abscess. 2 day S/P bedside I&D. Patient states that he is better today. He states that there is no pain in his right thigh now. Patient denies any overnight fever, chills, nausea, vomiting, Chest pain nor palpitation. Objective - Vital Signs/Intake and Output Vital Signs (last 24 hours): Temp Pulse Resp BP Pulse Ox 98.2 F 78 20 131/78 98 06/16/18 08:26 06/16/18 08:26 06/16/18 08:26 06/16/18 08:26 06/16/18 08:26 - Medications Medications: Current Medications Enoxaparin Sodium (Lovenox) 40 mg SC DAILY [facility]; Protocol Last Admin: 06/15/18 10:09 Dose: 40 mg Vancomycin HCl 1 gm/ Sodium (Chloride) 250 mls @ 166.667 mls/hr IVPB Q12 [facility]; Protocol Last Admin: 06/16/18 08:11 Dose: 166.667 mls/hr Thiamine HCl (Vitamin B1 Tab) 100 mg PO DAILY [facility] Last Admin: 06/16/18 08:12 Dose: 100 mg - Labs Labs: 06/16/18 05:45 06/16/18 05:45 PT 11.8 Seconds (9.8-13.1) 06/14/18 07:53 INR 1.0 06/14/18 07:53 APTT 30.7 Seconds (25.6-37.1) 06/14/18 07:53 - Constitutional Appears: Well, No Acute Distress - Head Exam Head Exam: ATRAUMATIC, NORMOCEPHALIC - Eye Exam Eye Exam: EOMI, Normal appearance, PERRL Pupil Exam: NORMAL ACCOMODATION, PERRL - ENT Exam ENT Exam: Mucous Membranes Moist, Normal Exam - Neck Exam Neck Exam: Full ROM, Normal Inspection - Respiratory Exam Respiratory Exam: Clear to Ausculation Bilateral, NORMAL BREATHING PATTERN - Cardiovascular Exam Cardiovascular Exam: REGULAR RHYTHM, RRR - GI/Abdominal Exam GI & Abdominal Exam: Soft, Normal Bowel Sounds - Extremities Exam Extremities Exam: Full ROM, Normal Capillary Refill Additional comments: The lateral aspect of the upper right thigh has an I&D drainage opening which dressed with [id number] and tape. - Neurological Exam Neurological Exam: Alert, Awake Neuro motor strength exam: Left Upper Extremity: 5, Right Upper Extremity: 5, L eft Lower Extremity: 5, Right Lower Extremity: 5 - Skin Skin Exam: Dry, Intact, Normal Color, Warm Assessment and Plan - Assessment and Plan (Free Text) Assessment: 67 years old male patient seen and evaluated at the bedside for lateral, upper right thigh abscess. 2 days S/P bedside I&D. Plan: # Right Thigh Abscess infected with MRSA - Consult Surgery, reccs appreciated. - 2 days S/P bedside I&D. - Patient refuses to go to subacute rehab, He accepted to go to TCU. - Patient will move to TCU tomorrow. # Gm+ cocci Bacteremia - ID, reccs 14 days of Vancomycin - Continue Vancomycin # day 3/14 - Ordred vancomycin trough to be done tomorrow 1/2 hour before the 4th dose. - Stop zosyn. - ECHO; no evidence of Endocarditis # Anemia - Follow Hb; 12.1 # Schizophrenia - Psychiatry consult states that; pt at current mental status does not have capacity to make decision in reference to his treatment # DVT Prophylaxis - Lovenox 40 mg SC QD # Code Status - Full <Lor Barksdale - Last Filed: 06/16/18 19:04> Objective - Vital Signs/Intake and Output Vital Signs (last 24 hours): Temp Pulse Resp BP Pulse Ox 98.5 F 57 L 20 124/72 98 06/16/18 16:12 06/16/18 16:12 06/16/18 16:12 06/16/18 16:12 06/16/18 16:12 - Medications Medications: Current Medications Enoxaparin Sodium (Lovenox) 40 mg SC DAILY [facility]; Protocol Last Admin: 06/16/18 15:07 Dose: 40 mg Vancomycin HCl 1 gm/ Sodium (Chloride) 250 mls @ 166.667 mls/hr IVPB Q12 [facility]; Protocol Last Admin: 06/16/18 08:11 Dose: 166.667 mls/hr Thiamine HCl (Vitamin B1 Tab) 100 mg PO DAILY [facility] Last Admin: 06/16/18 08:12 Dose: 100 mg - Labs Labs: 06/16/18 05:45 06/16/18 05:45 PT 11.8 Seconds (9.8-13.1) 06/14/18 07:53 INR 1.0 06/14/18 07:53 APTT 30.7 Seconds (25.6-37.1) 06/14/18 07:53 Attending/Attestation - Attestation I have personally seen and examined this patient.: Yes I have fully participated in the care of the patient.: Yes I have reviewed all pertinent clinical information, including history, physical exam and plan: Yes Notes (Text): MRSA Thigh Abscess s/p Incision drainage - pt on IV Vanco - check trough -we will d/c to TCU in am for 10 more days of IV antibiotic s to complete 14 days Streptococci Bacteremia - IV Vanco x 14 days as rec by Dr Rao Schizophrenia - Psych consulted to detn need for meds - pt is oriented to person and place and understands the he has an infection and the need for IV antibiotic treatment however refused to be placed in [facility] but would like to go to TCU
[2018-06-16] MEDS: Enoxaparin 40 mg Syringe SC SCH (15:07)
--- NOTE | 2018-06-17 07:49 | CP.PCM.DIS ---
Provider - Provider Date of Admission: 06/14/18 05:44 Attending physician: Tae Castillo Time Spent in preparation of Discharge (in minutes): 15 Diagnosis - Discharge Diagnosis (1) Abscess Status: Acute Hospital Course - Lab Results Lab Results: Micro Results 06/14/18 06:01 Blood-Venous Blood Culture - Preliminary NO GROWTH AFTER 3 DAYS 06/14/18 05:46 Blood-Venous Blood Culture - Preliminary NO GROWTH AFTER 3 DAYS Most Recent Lab Values WBC 6.3 K/uL (4.8-10.8) 06/16/18 05:45 RBC 4.28 Mil/uL (4.40-5.90) L 06/16/18 05:45 Hgb 12.1 g/dL (12.0-18.0) 06/16/18 05:45 Hct 36.6 % (35.0-51.0) 06/16/18 05:45 MCV 85.6 fl (80.0-94.0) 06/16/18 05:45 MCH 28.3 pg (27.0-31.0) 06/16/18 05:45 MCHC 33.1 g/dL (33.0-37.0) 06/16/18 05:45 RDW 14.2 % (11.5-14.5) 06/16/18 05:45 Plt Count 268 K/uL (130-400) 06/16/18 05:45 MPV 7.0 fl (7.2-11.7) L 06/14/18 05:46 Neut % (Auto) 63.0 % (50.0-75.0) 06/14/18 05:46 Lymph % (Auto) 22.0 % (20.0-40.0) 06/14/18 05:46 Collier % (Auto) 9.9 % (0.0-10.0) 06/14/18 05:46 Eos % (Auto) 4.5 % (0.0-4.0) H 06/14/18 05:46 Baso % (Auto) 0.6 % (0.0-2.0) 06/14/18 05:46 Neut # (Auto) 2.8 K/uL (1.8-7.0) 06/14/18 05:46 Lymph # (Auto) 1.0 K/uL (1.0-4.3) 06/14/18 05:46 Collier # (Auto) 0.4 K/uL (0.0-0.8) 06/14/18 05:46 Eos # (Auto) 0.2 K/uL (0.0-0.7) 06/14/18 05:46 Baso # (Auto) 0.0 K/uL (0.0-0.2) 06/14/18 05:46 PT 11.8 Seconds (9.8-13.1) 06/14/18 07:53 INR 1.0 06/14/18 07:53 APTT 30.7 Seconds (25.6-37.1) 06/14/18 07:53 Sodium 137 mmol/l (132-148) 06/16/18 05:45 Potassium 4.2 MMOL/L (3.6-5.0) 06/16/18 05:45 Chloride 102 mmol/L (98-107) 06/16/18 05:45 Carbon Dioxide 27 mmol/L (22-30) 06/16/18 05:45 Anion Gap 12 (10-20) 06/16/18 05:45 BUN 14 mg/dl (9-20) 06/16/18 05:45 Creatinine 1.1 mg/dl (0.8-1.5) 06/16/18 05:45 Est GFR ( Amer) > 60 06/16/18 05:45 Est GFR (Non-Af Amer) > 60 06/16/18 05:45 Random Glucose 93 mg/dL (75-110) 06/16/18 05:45 Lactic Acid 0.7 MMOL/L (0.7-2.1) 06/14/18 05:46 Calcium 8.8 mg/dL (8.4-10.2) 06/16/18 05:45 Total Bilirubin 0.3 mg/dl (0.2-1.3) 06/14/18 05:46 AST 35 U/L (17-59) 06/14/18 05:46 ALT 43 U/L (21-72) 06/14/18 05:46 Alkaline Phosphatase 62 U/L (38-126) 06/14/18 05:46 Total Protein 6.4 G/DL (6.3-8.2) 06/14/18 05:46 Albumin 3.5 g/dL (3.5-5.0) 06/14/18 05:46 Globulin 2.9 gm/dL (2.2-3.9) 06/14/18 05:46 Albumin/Globulin Ratio 1.2 (1.0-2.1) 06/14/18 05:46 Vancomycin Trough 10.7 ug/mL (5.0-10.0) H 06/16/18 20:30 Urine Opiates Screen Negative (NEGATIVE) 06/14/18 18:42 Urine Methadone Screen Negative (NEGATIVE) 06/14/18 18:42 Ur Barbiturates Screen Negative (NEGATIVE) 06/14/18 18:42 Ur Phencyclidine Scrn Negative (NEGATIVE) 06/14/18 18:42 Ur Amphetamines Screen Negative (NEGATIVE) 06/14/18 18:42 U Benzodiazepines Scrn Negative (NEGATIVE) 06/14/18 18:42 U Oth Cocaine Metabols Negative (NEGATIVE) 06/14/18 18:42 U Cannabinoids Screen Negative (NEGATIVE) 06/14/18 18:42 Alcohol, Quantitative < 10 mg/dl (0-10) 06/14/18 05:46 - Hospital Course Hospital Course: 67 y/o man w/ pmh of schizophrenia was admitted for abscess of the supralateral right thigh. Patient is 3 days s/p I&D. Patient had previous wound culture from ED visit 3 days prior to admission that grew MRSA. Patient currently denies pain. Patient on vancomcyin and is to receive a total of 14 days of vancomycin. Patient had Echo which was negative for endocarditis. Patient was seen by psychiatry for decision making capacity and was deemed not having capacity. Patient has no complaints. The patient has been seen, examined, and deemed medically fit for discharge to rehab facility to complete antibiotic course. Discharge Exam - Head Exam Head Exam: ATRAUMATIC, NORMOCEPHALIC - Eye Exam Eye Exam: Normal appearance - ENT Exam ENT Exam: Mucous Membranes Moist - Neck Exam Neck exam: Full Rom, Normal Inspection - Respiratory Exam Respiratory Exam: Clear to PA & Lateral, NORMAL BREATHING PATTERN, UNREMARKABLE. absent: Decreased Breath Sounds, Rales, Rhonchi, Wheezes, Respiratory Distress - Cardiovascular Exam Cardiovascular Exam: REGULAR RHYTHM, RRR - GI/Abdominal Exam GI & Abdominal Exam: Normal Bowel Sounds, Soft. absent: Tenderness - Extremities Exam Extremities exam: full ROM, normal capillary refill Additional comments: The lateral aspect of the upper right thigh has an I&D drainage opening which dressed with [id number] and tape. - Neurological Exam Neurological exam: Alert - Skin Skin Exam: Dry, Intact, Normal Color, Warm Discharge Plan - Follow Up Plan Condition: FAIR Disposition: TRANSF TO SNF Instructions: Skin Abscess, MRSA (DC) Additional Instructions: follow up with primary MD 1 week rt. thigh dressing Referrals: [facility] [Outside] Meagan Iniguez MD [Medical Doctor] - West Rao MD [Staff Provider] - Silviano Bolton MD [Staff Provider] -
[2018-06-17 08:24] VITALS: BP 129/75; PULSE 69; TEMP 97.5
--- NOTE | 2018-06-17 08:45 | CP.PCM.PN ---
Subjective - Date & Time of Evaluation Date of Evaluation: 06/17/18 Time of Evaluation: 08:43 - Subjective Subjective: Surgery: Dr. Bolton Pt seen and examined. No acute events overnight. No complaints this AM. Dressing changed at bedside. Objective - Vital Signs/Intake and Output Vital Signs (last 24 hours): Temp Pulse Resp BP Pulse Ox 97.5 F L 69 20 129/75 98 06/17/18 08:23 06/17/18 08:23 06/17/18 08:23 06/17/18 08:23 06/17/18 08:23 - Medications Medications: Current Medications Enoxaparin Sodium (Lovenox) 40 mg SC DAILY [facility]; Protocol Last Admin: 06/16/18 15:07 Dose: 40 mg Vancomycin HCl 1 gm/ Sodium (Chloride) 250 mls @ 166.667 mls/hr IVPB Q12 [facility]; Protocol Last Admin: 06/16/18 20:40 Dose: 166.667 mls/hr Thiamine HCl (Vitamin B1 Tab) 100 mg PO DAILY [facility] Last Admin: 06/16/18 08:12 Dose: 100 mg - Labs Labs: 06/16/18 05:45 06/16/18 05:45 PT 11.8 Seconds (9.8-13.1) 06/14/18 07:53 INR 1.0 06/14/18 07:53 APTT 30.7 Seconds (25.6-37.1) 06/14/18 07:53 - Constitutional Appears: Non-toxic, No Acute Distress - Head Exam Head Exam: ATRAUMATIC, NORMOCEPHALIC - Eye Exam Eye Exam: EOMI - ENT Exam ENT Exam: Mucous Membranes Moist - Neck Exam Neck Exam: Full ROM - Respiratory Exam Respiratory Exam: NORMAL BREATHING PATTERN. absent: Accessory Muscle Use, Respiratory Distress - GI/Abdominal Exam GI & Abdominal Exam: Soft. absent: Tenderness - Extremities Exam Additional comments: R lateral thigh 4x4 cm wound w. beefy red base, no drainage, non-tender - Neurological Exam Neurological Exam: Alert, Awake, Oriented x3 - Psychiatric Exam Psychiatric exam: Normal Affect, Normal Mood Assessment and Plan - Assessment and Plan (Free Text) Assessment: 67M w. R thigh abscess, s/p debridement, POD#3 -c/w daily dressing changes w. betadine -clear for d/c from surgical standpoint -d/w attending Jude PGY4
[2018-06-17] MEDS: Enoxaparin 40 mg Syringe SC SCH (09:51)
== END 2018-06-17 15:20 | DRG 603 ==
LOC: H.ER 04:26 → H.ERHOLD 05:44 → H.MEDSURG1 11:34
PROVIDERS: ADMIT Internal Medicine; ATTEND Internal Medicine
PROC: 0HBKXZZ Excision of Right Lower Leg Skin, External Approach (ICD-10-PCS; principal; 2018-06-14)
PROC: 3E02340 Introduction of Influenza Vaccine into Muscle, Percutaneous Approach (ICD-10-PCS; 2018-06-15)
PROC: 3E0234Z Introduction of Serum, Toxoid and Vaccine into Muscle, Percutaneous Approach (ICD-10-PCS; 2018-06-15)
DX: L02.415 Cutaneous abscess of right lower limb (principal); R78.81 Bacteremia; F20.5 Residual schizophrenia; B95.62 Methicillin resistant Staphylococcus aureus infection as the cause of diseases classified elsewhere; B95.4 Other streptococcus as the cause of diseases classified elsewhere; D64.9 Anemia, unspecified; F17.210 Nicotine dependence, cigarettes, uncomplicated; Z23 Encounter for immunization; Z59.0 Homelessness

== ENCOUNTER 2018-06-17 14:22 | Inpatient (IN) | payer OTHER, MEDICAID ==
[2018-06-17 15:39] VITALS: BMI 25.3
[2018-06-17 16:01] VITALS: RESP 20
[2018-06-18 06:59] LABS: HEMOGLOBIN 12.5 g/dL (12.0-18.0); MEAN CELL VOLUME 85.9 fl (80.0-94.0); MEAN CORPUSCULAR HEMOGLOBIN 28.7 pg (27.0-31.0); MEAN CORPUSCULAR HGB CONC 33.5 g/dL (33.0-37.0); RBC 4.36 Mil/uL (4.40-5.90); RED CELL DISTRIBUTION WIDTH 14.4 % (11.5-14.5); WHITE BLOOD COUNT 3.9 K/uL (4.8-10.8)
[2018-06-18 07:26] LABS: BLOOD UREA NITROGEN 17 mg/dl (9-20); CALCIUM 9.3 mg/dL (8.4-10.2); GFR NON-AFRICAN AMERICAN > 60
--- NOTE | 2018-06-18 08:10 | CP.PCM.PN ---
Subjective - Date & Time of Evaluation Date of Evaluation: 06/18/18 Time of Evaluation: 08:08 - Subjective Subjective: Surgery PT seen and examined. No acute events. resting comfortably. Dressing C/D/I. Objective - Vital Signs/Intake and Output Vital Signs (last 24 hours): Temp Pulse Resp BP Pulse Ox 98.2 F 70 20 119/63 97 06/17/18 19:44 06/17/18 22:00 06/17/18 22:00 06/17/18 19:44 06/17/18 22:00 - Medications Medications: Current Medications Enoxaparin Sodium (Lovenox) 40 mg SC DAILY [facility]; Protocol Vancomycin HCl 1 gm/ Sodium (Chloride) 250 mls @ 166.667 mls/hr IVPB DAILY@1700 [facility]; Protocol Thiamine HCl (Vitamin B1 Tab) 100 mg PO DAILY [facility] - Labs Labs: 06/18/18 06:00 06/18/18 06:00 - Constitutional Appears: No Acute Distress - Head Exam Head Exam: ATRAUMATIC, NORMAL INSPECTION, NORMOCEPHALIC - Eye Exam Eye Exam: EOMI, Normal appearance, PERRL Pupil Exam: NORMAL ACCOMODATION, PERRL - ENT Exam ENT Exam: Mucous Membranes Moist, Normal Exam - Neck Exam Neck Exam: Full ROM, Normal Inspection. absent: Lymphadenopathy - Respiratory Exam Respiratory Exam: NORMAL BREATHING PATTERN - Cardiovascular Exam Cardiovascular Exam: REGULAR RHYTHM - GI/Abdominal Exam GI & Abdominal Exam: Soft. absent: Distended, Tenderness - Exam Exam: NORMAL INSPECTION - Extremities Exam Extremities Exam: Full ROM. absent: Normal Inspection, Tenderness Additional comments: R thigh lateral granulation tissue 2x3x0.5cm. Dressing clean. - Back Exam Back Exam: NORMAL INSPECTION - Neurological Exam Neurological Exam: Alert, Awake, CN II-XII Intact, Normal Gait, Oriented x3 - Psychiatric Exam Psychiatric exam: Normal Affect, Normal Mood - Skin Skin Exam: Warm. absent: Intact Assessment and Plan - Assessment and Plan (Free Text) Assessment: s/p I& D and wound debridement for thigh abscess -dressing change w medihoney or betadine -No further surgical intervention WIll DW Dr. Bolton
[2018-06-18] MEDS ORDERED: Enoxaparin 40 mg Syringe SC SCH (09:00)
--- NOTE | 2018-06-18 12:33 | CP.PCM.HP ---
History of Present Illness - History of Present Illness History of Present Illness: 67 y/o man w/ pmh of schizophrenia is admitted to TCU to complete IV antibiotic course and physical therapy. Patient had right superolateral thigh abscess, 4 days s/p I&D. Patient receiving IV vancomycin for Strep bacteremia and MRSA in wound culture. Present on Admission - Present on Admission Any Indicators Present on Admission: No History of DVT/PE: No History of Uncontrolled Diabetes: No Urinary Catheter: No Decubitus Ulcer Present: No Review of Systems - Review of Systems All systems: reviewed and no additional remarkable complaints except - Constitutional Constitutional: absent: Anorexia, Chills, Headache - EENT Eyes: absent: Change in Vision - Cardiovascular Cardiovascular: absent: Chest Pain - Respiratory Respiratory: absent: Cough, Dyspnea on Exertion - Gastrointestinal Gastrointestinal: absent: Abdominal Pain, Nausea, Vomiting - Genitourinary Genitourinary: absent: Dysuria - Integumentary Integumentary: As Per HPI - Neurological Neurological: absent: Dizziness, Numbness, Headaches Past Patient History - Infectious Disease Hx of Infectious Diseases: None - Past Medical History & Family History Past Medical History?: No - Past Social History Smoking Status: Heavy Smoker > 10 Cigarettes Daily - CARDIAC Hx Cardiac Disorders: No Hx Hypertension: No - PULMONARY Hx Respiratory Disorders: No Hx Tuberculosis: No - NEUROLOGICAL Hx Neurological Disorder: No Hx Seizures: No - HEENT Hx HEENT Problems: No - RENAL Hx Chronic Kidney Disease: No - ENDOCRINE/METABOLIC Hx Endocrine Disorders: No - HEMATOLOGICAL/ONCOLOGICAL Hx AIDS: No Hx Human Immunodeficiency Virus (HIV): No - INTEGUMENTARY Hx Dermatological Problems: Yes Other/Comment: right thigh skin ulcer - MUSCULOSKELETAL/RHEUMATOLOGICAL Hx Falls: No - GASTROINTESTINAL Hx Gastrointestinal Disorders: No - GENITOURINARY/GYNECOLOGICAL Hx Genitourinary Disorders: No Hx Sexually Transmitted Disorders: No - PSYCHIATRIC Hx Substance Use: No - SURGICAL HISTORY Hx Surgeries: No - ANESTHESIA Hx Anesthesia: No Meds Allergies/Adverse Reactions: Allergies Allergy/AdvReac Type Severity Reaction Status Date / Time No Known Allergies Allergy Verified 06/17/18 14:47 Physical Exam - Constitutional Appears: Non-toxic, No Acute Distress - Head Exam Head Exam: ATRAUMATIC, NORMAL INSPECTION, NORMOCEPHALIC - Eye Exam Eye Exam: Normal appearance - ENT Exam ENT Exam: Mucous Membranes Moist - Respiratory Exam Respiratory Exam: Clear to Auscultation Bilateral, NORMAL BREATHING PATTERN. absent: Decreased Breath Sounds, Rales, Rhonchi, Wheezes, Respiratory Distress - Cardiovascular Exam Cardiovascular Exam: REGULAR RHYTHM, RRR. absent: Tachycardia - GI/Abdominal Exam GI & Abdominal Exam: Normal Bowel Sounds, Soft. absent: Distended, Tenderness - Extremities Exam Extremities exam: Positive for: full ROM, normal capillary refill Additional comments: The lateral aspect of the upper right thigh has an I&D drainage opening which dressed with [id number] and tape. - Neurological Exam Neurological exam: Alert - Skin Skin Exam: Dry, Normal Color, Warm Results - Vital Signs Recent Vital Signs: Last Vital Signs Temp 97.1 F L 06/18/18 08:14 Pulse 69 06/18/18 08:14 Resp 20 06/18/18 08:14 BP 137/80 06/18/18 08:14 Pulse Ox 99 06/18/18 08:14 - Labs Result Diagrams: 06/18/18 06:00 06/18/18 06:00 Labs: Laboratory Results - last 24 hr 06/18/18 06/18/18 06:00 06:00 WBC 3.9 L RBC 4.36 L Hgb 12.5 Hct 37.4 MCV 85.9 MCH 28.7 MCHC 33.5 RDW 14.4 Plt Count 262 Sodium 139 Potassium 4.4 Chloride 101 Carbon Dioxide 29 Anion Gap 13 BUN 17 Creatinine 0.9 Est GFR ( Amer) > 60 Est GFR (Non-Af Amer) > 60 Random Glucose 96 Calcium 9.3 Assessment & Plan - Assessment and Plan (Free Text) Assessment: 67 y/o man w/ pmh of schizophrenia admitted to TCU for completion of IV antibiotics course and physical therapy. Patient had right thigh abscess. 4 days S/P bedside I&D. Plan: Right Thigh Abscess infected with MRSA - Surgery consulted, recommendations appreciated. - 4 days S/P bedside I&D. Gm+ cocci Bacteremia - ID, recommends 14 days of Vancomycin - Continue Vancomycin # day 5/14 - ECHO; no evidence of Endocarditis Anemia - Follow Hb; 12.5 Schizophrenia - Psychiatry consult states that; pt at current mental status does not have capacity to make decision in reference to his treatment - awaiting psych recommendations Deconditioing - c/w PT/OT DVT Prophylaxis - Lovenox 40 mg SC QD Code Status - Full
--- NOTE | 2018-06-18 14:34 | CP.PCM.CON ---
History of Present Illness - History of Present Illness History of Present Illness: consult requested, I have evaluated pt two days ago, pt with history of residual schizophrenia, no current changes in mental status, denied suicidal or homicidal ideation, denied perceptual disturbances, non elicited no changes in sleep or appetite at current mental status no further management needed Past Patient History - Infectious Disease Hx of Infectious Diseases: None - Past Medical History & Family History Past Medical History?: No - Past Social History Smoking Status: Heavy Smoker > 10 Cigarettes Daily - CARDIAC Hx Cardiac Disorders: No Hx Hypertension: No - PULMONARY Hx Respiratory Disorders: No Hx Tuberculosis: No - NEUROLOGICAL Hx Neurological Disorder: No Hx Seizures: No - HEENT Hx HEENT Problems: No - RENAL Hx Chronic Kidney Disease: No - ENDOCRINE/METABOLIC Hx Endocrine Disorders: No - HEMATOLOGICAL/ONCOLOGICAL Hx AIDS: No Hx Human Immunodeficiency Virus (HIV): No - INTEGUMENTARY Hx Dermatological Problems: Yes Other/Comment: right thigh skin ulcer - MUSCULOSKELETAL/RHEUMATOLOGICAL Hx Falls: No - GASTROINTESTINAL Hx Gastrointestinal Disorders: No - GENITOURINARY/GYNECOLOGICAL Hx Genitourinary Disorders: No Hx Sexually Transmitted Disorders: No - PSYCHIATRIC Hx Substance Use: No - SURGICAL HISTORY Hx Surgeries: No - ANESTHESIA Hx Anesthesia: No Meds Allergies/Adverse Reactions: Allergies Allergy/AdvReac Type Severity Reaction Status Date / Time No Known Allergies Allergy Verified 06/17/18 14:47 - Medications Medications: Current Medications Enoxaparin Sodium (Lovenox) 40 mg SC DAILY [facility]; Protocol Last Admin: 06/18/18 08:13 Dose: 40 mg Vancomycin HCl 1 gm/ Sodium (Chloride) 250 mls @ 166.667 mls/hr IVPB DAILY@1700 [facility]; Protocol Thiamine HCl (Vitamin B1 Tab) 100 mg PO DAILY [facility] Last Admin: 06/18/18 08:13 Dose: 100 mg Results - Vital Signs Recent Vital Signs: Last Vital Signs Temp 97.1 F L 06/18/18 08:14 Pulse 69 06/18/18 08:14 Resp 20 06/18/18 08:14 BP 137/80 06/18/18 08:14 Pulse Ox 99 06/18/18 08:14 - Labs Result Diagrams: 06/18/18 06:00 06/18/18 06:00 Labs: Laboratory Results - last 24 hr 06/18/18 06/18/18 06:00 06:00 WBC 3.9 L RBC 4.36 L Hgb 12.5 Hct 37.4 MCV 85.9 MCH 28.7 MCHC 33.5 RDW 14.4 Plt Count 262 Sodium 139 Potassium 4.4 Chloride 101 Carbon Dioxide 29 Anion Gap 13 BUN 17 Creatinine 0.9 Est GFR ( Amer) > 60 Est GFR (Non-Af Amer) > 60 Random Glucose 96 Calcium 9.3
[2018-06-18 19:39] VITALS: BP 143/80; PULSE 80; TEMP 97.5; O2SAT 98
--- NOTE | 2018-06-18 20:37 | CP.PCM.DIS ---
Provider - Provider Date of Admission: 06/17/18 15:39 Attending physician: Yoselin Roldan MD Primary care physician: Dr Roldan Consults: Dr Iniguez psychiatry Dr Bolton surgery Time Spent in preparation of Discharge (in minutes): 20 Diagnosis - Discharge Diagnosis (1) Abscess of right thigh Status: Acute (2) Streptococcal bacteremia Status: Acute (3) MRSA (methicillin resistant staph aureus) culture positive Status: Acute Hospital Course - Lab Results Lab Results: Most Recent Lab Values WBC 3.9 K/uL (4.8-10.8) L 06/18/18 06:00 RBC 4.36 Mil/uL (4.40-5.90) L 06/18/18 06:00 Hgb 12.5 g/dL (12.0-18.0) 06/18/18 06:00 Hct 37.4 % (35.0-51.0) 06/18/18 06:00 MCV 85.9 fl (80.0-94.0) 06/18/18 06:00 MCH 28.7 pg (27.0-31.0) 06/18/18 06:00 MCHC 33.5 g/dL (33.0-37.0) 06/18/18 06:00 RDW 14.4 % (11.5-14.5) 06/18/18 06:00 Plt Count 262 K/uL (130-400) 06/18/18 06:00 Sodium 139 mmol/l (132-148) 06/18/18 06:00 Potassium 4.4 MMOL/L (3.6-5.0) 06/18/18 06:00 Chloride 101 mmol/L (98-107) 06/18/18 06:00 Carbon Dioxide 29 mmol/L (22-30) 06/18/18 06:00 Anion Gap 13 (10-20) 06/18/18 06:00 BUN 17 mg/dl (9-20) 06/18/18 06:00 Creatinine 0.9 mg/dl (0.8-1.5) 06/18/18 06:00 Est GFR ( Amer) > 60 06/18/18 06:00 Est GFR (Non-Af Amer) > 60 06/18/18 06:00 Random Glucose 96 mg/dL (75-110) 06/18/18 06:00 Calcium 9.3 mg/dL (8.4-10.2) 06/18/18 06:00 - Hospital Course Hospital Course: 67 y/o man w/ pmh of schizophrenia admitted to TCU for completion of IV antibiotics course and physical therapy. Patient had right thigh abscess. 4 days S/P bedside I&D. Right Thigh Abscess infected with MRSA - Surgery consulted,Dr Bolton - 4 days S/P bedside I&D. Gm+ cocci Bacteremia - ID, recommends 14 days of Vancomycin - Continue Vancomycin # day 12/07 - ECHO; no evidence of Endocarditis Schizophrenia - Psychiatry consult states that: Pt with history of residual schizophrenia, no current changes in mental status, denied suicidal or homicidal ideation, denied perceptual disturbances, non elicited no changes in sleep or appetite at current mental status no further management needed The patient wants to sign out of hospital against medical advice. It was explained to him that he need at least 9 more days of Antibiotic treatment and thet the infection could worsen and spread and he could loose the limb. He stated that he will take responsibility for that. He was oriented to person ,time and place. He was already evaluated by the Psychiatrist who noted that at current mental status this patient needed no further management. He was allowed to sign AMA and a Prescription was given for Bactrim for 14 days and advised to return to the ED if any worsening in condition. Tae Castillo MD - Date & Time of H&P Date of H&P: 06/18/18 Time of H&P: 12:31 Discharge Exam - Head Exam Head Exam: ATRAUMATIC, NORMAL INSPECTION, NORMOCEPHALIC Discharge Plan - Follow Up Plan Condition: GOOD Disposition: AGAINST MEDICAL ADVICE Patient education suggested?: No Additional Instructions: Fill the Prescription for the Bactrim and take one tablet 2 times a day for 14 days. Return to the ED if any changes in condition.
== END 2018-06-18 20:30 | disposition left against medical advice (07) | DRG 603 ==
LOC: H.TCU 15:39
PROVIDERS: ADMIT Hospitalist; ATTEND Hospitalist
PROC: 3E03329 Introduction of Other Anti-infective into Peripheral Vein, Percutaneous Approach (ICD-10-PCS; principal; 2018-06-17)
PROC: F07M6FZ Therapeutic Exercise Treatment of Musculoskeletal System - Whole Body using Assistive, Adaptive, Supportive or Protective Equipment (ICD-10-PCS; 2018-06-17)
PROC: F08Z4FZ Home Management Treatment using Assistive, Adaptive, Supportive or Protective Equipment (ICD-10-PCS; 2018-06-17)
DX: L02.415 Cutaneous abscess of right lower limb (principal); R78.81 Bacteremia; F20.5 Residual schizophrenia; Z87.891 Personal history of nicotine dependence; B95.5 Unspecified streptococcus as the cause of diseases classified elsewhere

== ENCOUNTER 2018-06-18 20:46 | Emergency (ER) | payer MEDICARE, MEDICAID ==
[2018-06-18 20:46] VITALS: BMI 25.3
[2018-06-18 21:00] VITALS: BP 148/80; PULSE 85; RESP 18; TEMP 97.3; O2SAT 100
--- NOTE | 2018-06-18 21:27 | ED PDOC ---
HPI: Psych/Substance Abuse Time Seen by Provider: 06/18/18 21:02 Chief Complaint (Nursing): Psychiatric Evaluation Chief Complaint (Provider): Medication refill History Per: Patient History/Exam Limitations: no limitations Onset/Duration Of Symptoms: Days Current Symptoms Are (Timing): Still Present Additional Complaint(s): 67 yo male with history of schizophrenia presents for medication refill of Prolixin. PT states he normally takes 5mg a day and was being seen by a psychiatrist in [place]. Pt states he is not suicidal or homicidal. Pt states he does not want to hear voices again. Past Medical History Reviewed: Historical Data, Nursing Documentation, Vital Signs Vital Signs: Last Vital Signs Temp 97.3 F L 06/18/18 20:58 Pulse 85 06/18/18 20:58 Resp 18 06/18/18 20:58 BP 148/80 06/18/18 20:58 Pulse Ox 100 06/18/18 20:58 - Medical History PMH: Schizophrenia Denies: Diabetes, Hepatitis, HIV, HTN, Chronic Kidney Disease, Seizures, Sexually Transmitted Disease - Surgical History Surgical History: No Surg Hx - Family History Family History: States: Unknown Family Hx - Living Arrangements Living Arrangements: With Family - Social History Current smoker - smoking cessation education provided: No - Home Medications Home Medications: Ambulatory Orders Medication Instructions Recorded Enoxaparin [Lovenox] 40 mg SC DAILY syr 06/17/18 Thiamine [Vitamin B1 Tab] 100 mg PO DAILY tab 06/17/18 Vancomycin/0.9 % Sod Chloride 1 gm IV Q12 11 Days plast..bag 06/17/18 [Vanco 1 Gram/250 ml-0.9% NaCl] fluPHENAZine [Fluphenazine HCl] 5 mg PO DAILY #14 tab 06/18/18 - Allergies Allergies/Adverse Reactions: Allergies Allergy/AdvReac Type Severity Reaction Status Date / Time No Known Allergies Allergy Verified 06/18/18 20:57 Review of Systems ROS Statement: Except As Marked, All Systems Reviewed And Found Negative Constitutional: Negative for: Fever, Chills Gastrointestinal: Negative for: Nausea, Vomiting, Abdominal Pain Neurological: Negative for: Weakness, Numbness Physical Exam - Reviewed Nursing Documentation Reviewed: Yes Vital Signs Reviewed: Yes - Physical Exam Appears: Positive for: Well, Non-toxic, No Acute Distress Head Exam: Positive for: ATRAUMATIC, NORMAL INSPECTION, NORMOCEPHALIC Skin: Positive for: Normal Color, Warm, DRY Eye Exam: Positive for: Normal appearance ENT: Positive for: Normal ENT Inspection Neck: Positive for: Normal Cardiovascular/Chest: Positive for: Regular Rate, Rhythm Respiratory: Positive for: Normal Breath Sounds. 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 2115: Prior to going back into the room to discussed refill for 2 weeks and f/u appointment, pt leaves the room. Disposition - Clinical Impression Clinical Impression: Schizophrenia - Disposition Disposition: Routine/Home Disposition Time: 21:30 Condition: STABLE Prescriptions: fluPHENAZine [Fluphenazine HCl] 5 mg PO DAILY #14 tab Instructions: Schizophrenia (DC) Forms: [employer] (Puerto Rican)
[2018-06-19] MEDS ORDERED: Vancomycin 1 g Inj ONE (09:41)
== END 2018-06-18 21:30 | disposition left against medical advice (07) ==
LOC: H.ER 20:46
DX: Z76.0 Encounter for issue of repeat prescription (principal); F20.9 Schizophrenia, unspecified

== ENCOUNTER 2018-06-18 22:21 | Emergency (ER) | payer MEDICARE, MEDICAID ==
[2018-06-18 22:21] VITALS: BMI 25.3
[2018-06-18 23:16] VITALS: BP 140/79; PULSE 82; RESP 18; TEMP 98; O2SAT 99
--- NOTE | 2018-06-19 00:27 | ED PDOC ---
HPI: Psych/Substance Abuse Time Seen by Provider: 06/18/18 23:14 Chief Complaint (Nursing): Psychiatric Evaluation Chief Complaint (Provider): Psychiatric Evaluation History Per: Patient History/Exam Limitations: no limitations Additional Complaint(s): 67 years old male with history of schizophrenia presents to ER for evaluation of hearing voices. Patient reports the voices are not telling him to hurt himself or hurt other. He did not elaborate on specifics of voices and he is requesting to speak to a psychiatrist but refusing to talk to crisis. Patient denies SI/HI or any other complaints. PMD: non provided Past Medical History Reviewed: Historical Data, Nursing Documentation, Vital Signs Vital Signs: Last Vital Signs Temp 98.0 F 06/18/18 23:13 Pulse 82 06/18/18 23:13 Resp 18 06/18/18 23:13 BP 140/79 06/18/18 23:13 Pulse Ox 99 06/18/18 23:13 - Medical History PMH: Schizophrenia Denies: Diabetes, Hepatitis, HIV, HTN, Chronic Kidney Disease, Seizures, Sexually Transmitted Disease - Surgical History Surgical History: No Surg Hx - Family History Family History: States: Unknown Family Hx - Social History Current smoker - smoking cessation education provided: Yes Alcohol: None Drugs: Denies - Home Medications Home Medications: Ambulatory Orders Medication Instructions Recorded Enoxaparin [Lovenox] 40 mg SC DAILY syr 06/17/18 Thiamine [Vitamin B1 Tab] 100 mg PO DAILY tab 06/17/18 Vancomycin/0.9 % Sod Chloride 1 gm IV Q12 11 Days plast..bag 06/17/18 [Vanco 1 Gram/250 ml-0.9% NaCl] fluPHENAZine [Fluphenazine HCl] 5 mg PO DAILY #14 tab 06/18/18 - Allergies Allergies/Adverse Reactions: Allergies Allergy/AdvReac Type Severity Reaction Status Date / Time No Known Allergies Allergy Verified 06/18/18 23:13 Review of Systems ROS Statement: Except As Marked, All Systems Reviewed And Found Negative Psych: Positive for: Other (Hearing voices). Negative for: Suicidal ideation (or homicidal) Physical Exam - Reviewed Nursing Documentation Reviewed: Yes Vital Signs Reviewed: Yes - Physical Exam Appears: Positive for: Non-toxic, No Acute Distress (calm, cooperative, reading newspaper) Head Exam: Positive for: ATRAUMATIC, NORMOCEPHALIC Skin: Positive for: Normal Color, Warm, Dry Eye Exam: Positive for: Normal appearance, EOMI, PERRL Neck: Positive for: Normal, Painless ROM, Supple Cardiovascular/Chest: Positive for: Regular Rate, Rhythm. Negative for: Murmur Respiratory: Positive for: Normal Breath Sounds. Negative for: Wheezing Gastrointestinal/Abdominal: Positive for: Normal Exam, Soft. Negative for: Tenderness Back: Positive for: Normal Inspection. Negative for: L CVA Tenderness, R CVA Tenderness Extremity: Positive for: Normal ROM. Negative for: Pedal Edema, Deformity Neurologic/Psych: Positive for: Alert, Oriented (x3) - ECG O2 Sat by Pulse Oximetry: 99 (RA) Pulse Ox Interpretation: Normal Medical Decision Making Medical Decision Making: Time: 2334 A/P: 67 years old male with history of schizophrenia presents for hearing voices --Patient is unwilling to hurt himself or others --No 1:1 needed --Advised patient to follow up with a psychiatrist as an outpatient [id number] --Patient walked out from ER prior to discharge Scribe Attestation: Documented by Raina Verma, acting as a scribe for Román Fraga MD. Provider Scribe Attestation: All medical record entries made by the Scribe were at my direction and personally dictated by me. I have reviewed the chart and agree that the record accurately reflects my personal performance of the history, physical exam, medical decision making, and the department course for this patient. I have also personally directed, reviewed, and agree with the discharge instructions and disposition. Disposition - Clinical Impression Clinical Impression: Schizophrenia - Patient ED Disposition Is Patient to be Admitted: No - Disposition Disposition: Routine/Home Disposition Time: 05:20 Condition: STABLE Instructions: Schizophrenia Forms: [employer] (Norwegian)
== END 2018-06-18 23:50 | disposition left against medical advice (07) ==
LOC: H.ER 22:21
DX: R44.0 Auditory hallucinations (principal); Z86.59 Personal history of other mental and behavioral disorders; Z00.8 Encounter for other general examination; F20.9 Schizophrenia, unspecified

== ENCOUNTER 2018-06-19 01:41 | Emergency (ER) | payer MEDICARE, MEDICAID ==
[2018-06-19 01:41] VITALS: BMI 25.3
[2018-06-19 05:52] VITALS: BP 118/63; PULSE 80; RESP 18; TEMP 97.3; O2SAT 97
== END 2018-06-19 03:00 | disposition left against medical advice (07) ==
LOC: H.ER 01:41
DX: Z02.89 Encounter for other administrative examinations (principal)

== ENCOUNTER 2018-06-19 08:25 | Emergency (ER) | payer MEDICARE, MEDICAID ==
[2018-06-19 08:25] VITALS: BMI 25.3
[2018-06-19 08:47] VITALS: RESP 18; TEMP 97.9
--- NOTE | 2018-06-19 09:39 | ED PDOC ---
HPI: Wound Care - HPI Time Seen by Provider: 06/19/18 09:11 Chief Complaint (Nursing): Abnormal Skin Integrity Chief Complaint (Provider): "hip pain" History Per: Patient Additional Complaint(s): 67 y/o man w/ pmh of schizophrenia presents to ED with complaints of an "ulceration,' to his right hip. Pt reports pain to affected area and drainage. Pt denies taking any medications thus far. Upon chart review, Pt underwent I&D of right superolateral thigh abscess on 06/14/18. Patient was receiving IV vancomycin for Strep bacteremia and MRSA in wound culture. Pt was advised to continue Vanco for 14 days but was sent home on Bactrim s/p leaving AMA on 06/18. pt has not continued medications at this time. Pt is homeless. Pt has returned 2 x to ED in last 24 hours; however, both for psych complaints, no mention of wound. pt offered admission to continue IV therapy at this time; however, declined again Past Medical History Reviewed: Nursing Documentation, Vital Signs Vital Signs: Last Vital Signs Temp 97.9 F 06/19/18 08:46 Pulse 86 06/19/18 08:46 Resp 18 06/19/18 08:46 BP 125/70 06/19/18 08:46 Pulse Ox 97 06/19/18 08:46 - Medical History PMH: Schizophrenia Denies: Diabetes, Hepatitis, HIV, HTN, Chronic Kidney Disease, Seizures, Sexually Transmitted Disease - Family History Family History: States: Unknown Family Hx - Living Arrangements Living Arrangements: Other - Social History Current smoker - smoking cessation education provided: No Alcohol: None Drugs: Denies - Home Medications Home Medications: Ambulatory Orders Medication Instructions Recorded Enoxaparin [Lovenox] 40 mg SC DAILY syr 06/17/18 Thiamine [Vitamin B1 Tab] 100 mg PO DAILY tab 06/17/18 Vancomycin/0.9 % Sod Chloride 1 gm IV Q12 11 Days plast..bag 06/17/18 [Vanco 1 Gram/250 ml-0.9% NaCl] fluPHENAZine [Fluphenazine HCl] 5 mg PO DAILY #14 tab 06/18/18 Clindamycin [Cleocin] 300 mg PO BID #14 cap 06/19/18 - Allergies Allergies/Adverse Reactions: Allergies Allergy/AdvReac Type Severity Reaction Status Date / Time No Known Allergies Allergy Verified 06/18/18 23:13 Review of Systems ROS Statement: Except As Marked, All Systems Reviewed And Found Negative Skin: Positive for: Lesions Physical Exam - Reviewed Nursing Documentation Reviewed: Yes Vital Signs Reviewed: Yes - Physical Exam Appears: Positive for: Well, Non-toxic, No Acute Distress Head Exam: Positive for: ATRAUMATIC, NORMAL INSPECTION, NORMOCEPHALIC Skin: Positive for: Normal Color, Warm, DRY Eye Exam: Positive for: EOMI, Normal appearance, PERRL ENT: Positive for: Normal ENT Inspection Neck: Positive for: Normal, Painless ROM Cardiovascular/Chest: Positive for: Regular Rate, Rhythm Respiratory: Positive for: CNT, Normal Breath Sounds Gastrointestinal/Abdominal: Positive for: Normal Exam, Soft Back: Positive for: Normal Inspection Extremity: Positive for: Normal ROM, Other (R hip: (+) 5x 3 cm ulceration noted, mild surroudning erythema, no edema, no ecchymosis. (+) Drainage of serious fluid. ) Neurologic/Psych: Positive for: Alert, Oriented - Laboratory Results Result Diagrams: 06/19/18 10:14 06/19/18 10:14 - ECG O2 Sat by Pulse Oximetry: 97 Medical Decision Making Medical Decision Making: Diagnosis ordered. IV Vanco administered at this time. Pt again offered admission to continue antibiotic therapt and declind. Labs resulted and reviewed. Pt sent home with outpatient antibiotics again. Case discussed with Dr. Mora, who advised Clinda due to sensitivity. Disposition - Clinical Impression Clinical Impression: Bacteremia, MRSA (methicillin resistant staph aureus) culture positive - Patient ED Disposition Is Patient to be Admitted: No - Disposition Disposition: Routine/Home Disposition Time: 12:41 Condition: STABLE Prescriptions: Clindamycin [Cleocin] 300 mg PO BID #14 cap Instructions: MRSA (DC), Wound Care Forms: [employer] (Kyrgyz)
[2018-06-19 10:20] LABS: BASO % 0.7 % (0.0-2.0); EOS # 0.1 K/uL (0.0-0.7); HEMOGLOBIN 12.8 g/dL (12.0-18.0); LYMPH % 28.2 % (20.0-40.0); MEAN CELL VOLUME 85.6 fl (80.0-94.0); MEAN CORPUSCULAR HEMOGLOBIN 27.8 pg (27.0-31.0); MEAN CORPUSCULAR HGB CONC 32.5 g/dL (33.0-37.0); MEAN PLATELET VOLUME 7.1 fl (7.2-11.7); MONO # 0.4 K/uL (0.0-0.8); MONO % 11.8 % (0.0-10.0); NEUT % 57.3 % (50.0-75.0); NRBC % 0.1 % (0.0-0.0); RBC 4.59 Mil/uL (4.40-5.90); RED CELL DISTRIBUTION WIDTH 14.3 % (11.5-14.5); WHITE BLOOD COUNT 3.6 K/uL (4.8-10.8)
[2018-06-19 10:38] LABS: ALB/GLOB RATIO 1.1 (1.0-2.1); ALBUMIN 4.2 g/dL (3.5-5.0); ALT/SGPT 53 U/L (21-72); AST/SGOT 41 U/L (17-59); BLOOD UREA NITROGEN 14 mg/dl (9-20); CALCIUM 9.4 mg/dL (8.4-10.2); GFR NON-AFRICAN AMERICAN > 60
[2018-06-19 12:46] VITALS: BP 136/75; PULSE 67; O2SAT 100
--- NOTE | 2018-06-19 16:36 | RAD ---
PROCEDURE: Right Hip Radiographs. HISTORY: Right hip ulceration COMPARISON: No prior study available for comparison FINDINGS: BONES: No evidence of acute displaced fracture nor dislocation. Both femoral heads are appropriately located within the respective acetabula. Mild spurring of the superolateral margins of both acetabular roofs. No obvious cortical destructive changes. JOINTS: Normal. SOFT TISSUES: Soft tissues appear grossly unremarkable without evidence of subcutaneous emphysema OTHER FINDINGS: None. IMPRESSION: No acute fractures. Minor degenerative osteoarthritis both hip joints as above.. No cortical destructive changes or subcutaneous emphysema identified.
== END 2018-06-19 13:05 | disposition home or self-care (01) ==
LOC: H.ER 08:25
DX: L98.499 Non-pressure chronic ulcer of skin of other sites with unspecified severity (principal); A49.02 Methicillin resistant Staphylococcus aureus infection, unspecified site; Z86.59 Personal history of other mental and behavioral disorders; Z59.0 Homelessness

== ENCOUNTER 2018-06-20 02:45 | Emergency (ER) | payer MEDICARE, MEDICAID ==
[2018-06-20 02:45] VITALS: BMI 25.3
[2018-06-20 02:53] VITALS: BP 128/86; PULSE 87; RESP 16; TEMP 98; O2SAT 97
--- NOTE | 2018-06-20 03:08 | ED PDOC ---
HPI: General Adult Time Seen by Provider: 06/20/18 02:49 Chief Complaint (Nursing): Med Refill Chief Complaint (Provider): Med Refill History Per: Patient History/Exam Limitations: no limitations Additional Complaint(s): 67 year old male with a history of schizophrenia presents to the ED for a refill of his psychiatric medication. He notes hearing voices but states they are not persecutory, and otherwise denies suicidal / homicidal ideation. PMD: none provided Past Medical History Reviewed: Historical Data, Nursing Documentation, Vital Signs Vital Signs: Last Vital Signs Temp 98.0 F 06/20/18 02:51 Pulse 87 06/20/18 02:51 Resp 16 06/20/18 02:51 BP 128/86 06/20/18 02:51 Pulse Ox 97 06/20/18 02:51 - Medical History PMH: Schizophrenia Denies: Diabetes, Hepatitis, HIV, HTN, Chronic Kidney Disease, Seizures, Sexually Transmitted Disease - Surgical History Surgical History: No Surg Hx - Family History Family History: States: Unknown Family Hx - Home Medications Home Medications: Ambulatory Orders Medication Instructions Recorded Enoxaparin [Lovenox] 40 mg SC DAILY syr 06/17/18 Thiamine [Vitamin B1 Tab] 100 mg PO DAILY tab 06/17/18 Vancomycin/0.9 % Sod Chloride 1 gm IV Q12 11 Days plast..bag 06/17/18 [Vanco 1 Gram/250 ml-0.9% NaCl] fluPHENAZine [Fluphenazine HCl] 5 mg PO DAILY #14 tab 06/18/18 Clindamycin [Cleocin] 300 mg PO BID #14 cap 06/19/18 - Allergies Allergies/Adverse Reactions: Allergies Allergy/AdvReac Type Severity Reaction Status Date / Time No Known Allergies Allergy Verified 06/20/18 02:53 Review of Systems ROS Statement: Except As Marked, All Systems Reviewed And Found Negative Psych: Positive for: Other (auditory hallucinations). Negative for: Suicidal ideation (and homidical ideation) Physical Exam - Reviewed Nursing Documentation Reviewed: Yes Vital Signs Reviewed: Yes - Physical Exam Appears: Positive for: No Acute Distress (but disheveled) Head Exam: Positive for: ATRAUMATIC, NORMOCEPHALIC Skin: Positive for: Normal Color, Warm, Dry Eye Exam: Positive for: Normal appearance Cardiovascular/Chest: Positive for: Regular Rate, Rhythm Respiratory: Positive for: Normal Breath Sounds. Negative for: Respiratory Distress Gastrointestinal/Abdominal: Positive for: Normal Exam, Soft. Negative for: Tenderness Back: Positive for: Normal Inspection Extremity: Positive for: Normal ROM Neurologic/Psych: Positive for: Alert, Oriented (x3) - ECG O2 Sat by Pulse Oximetry: 97 (RA) Pulse Ox Interpretation: Normal Medical Decision Making Medical Decision Making: A/P: 67 year old male with history of schizophrenia presenting for medication refill Time: 0300 Explained to patient that he cannot get his psych medications refilled in the Emergency Room and must follow up with a psychiatrist. Patient was previously scheduled for an out patient follow up, but he reports not wanting to follow up. Stable for discharge. Scribe Attestation: Documented by Darling Patrick acting as a scribe for Román Fraga MD. Provider Scribe Attestation: All medical record entries made by the Scribe were at my direction and personally dictated by me. I have reviewed the chart and agree that the record accurately reflects my personal performance of the history, physical exam, medical decision making, and the department course for this patient. I have also personally directed, reviewed, and agree with the discharge instructions and disposition. Disposition - Clinical Impression Clinical Impression: Schizophrenia - Patient ED Disposition Is Patient to be Admitted: No Counseled Patient/Family Regarding: Need For Followup - Disposition Referrals: [facility] [Outside] Disposition: Routine/Home Disposition Time: 03:06 Condition: STABLE Instructions: General (DC), Schizophrenia Forms: [employer] (Maori)
== END 2018-06-20 03:23 | disposition home or self-care (01) ==
LOC: H.ER 02:45
DX: Z76.0 Encounter for issue of repeat prescription (principal); F20.9 Schizophrenia, unspecified

== ENCOUNTER 2018-06-23 00:39 | Emergency (ER) | payer MEDICARE, MEDICAID ==
[2018-06-23 01:01] VITALS: BMI 23.1
[2018-06-23 01:03] VITALS: BP 127/63; PULSE 89; RESP 18; TEMP 98; O2SAT 98
--- NOTE | 2018-06-23 02:23 | ED PDOC ---
HPI: Abdomen Time Seen by Provider: 06/23/18 01:39 Chief Complaint (Nursing): GI Problem Chief Complaint (Provider): Diarrhea History Per: Patient Current Symptoms Are (Timing): Still Present Additional History Per: Patient Additional Complaint(s): 67yo homeless male, history of schizophrenia, comes to ER reporting diarrhea. Patient well known to provider and staff with multiple ER visits and bed seeking behavior. During provider attempt to evaluate patient, patient is requesting to be allowed to sleep. No other medical complaints at this time. Past Medical History Reviewed: Historical Data, Nursing Documentation, Vital Signs Vital Signs: Last Vital Signs Temp 98.0 F 06/23/18 01:01 Pulse 89 06/23/18 01:01 Resp 18 06/23/18 01:01 BP 127/63 06/23/18 01:01 Pulse Ox 98 06/23/18 01:01 - Medical History PMH: Schizophrenia Denies: Diabetes, Hepatitis, HIV, HTN, Chronic Kidney Disease, Seizures, Sexually Transmitted Disease - Surgical History Surgical History: No Surg Hx - Family History Family History: States: Unknown Family Hx - Home Medications Home Medications: Ambulatory Orders Medication Instructions Recorded Enoxaparin [Lovenox] 40 mg SC DAILY syr 06/17/18 Thiamine [Vitamin B1 Tab] 100 mg PO DAILY tab 06/17/18 Vancomycin/0.9 % Sod Chloride 1 gm IV Q12 11 Days plast..bag 06/17/18 [Vanco 1 Gram/250 ml-0.9% NaCl] fluPHENAZine [Fluphenazine HCl] 5 mg PO DAILY #14 tab 06/18/18 Clindamycin [Cleocin] 300 mg PO BID #14 cap 06/19/18 Dicyclomine [Bentyl] 20 mg PO Q12 PRN #20 tab 06/23/18 - Allergies Allergies/Adverse Reactions: Allergies Allergy/AdvReac Type Severity Reaction Status Date / Time No Known Allergies Allergy Verified 06/23/18 01:01 Review of Systems ROS Statement: Except As Marked, All Systems Reviewed And Found Negative Gastrointestinal: Positive for: Diarrhea Physical Exam - Reviewed Nursing Documentation Reviewed: Yes Vital Signs Reviewed: Yes - Physical Exam Appears: Positive for: No Acute Distress (poor state of hygeine) Head Exam: Positive for: ATRAUMATIC, NORMAL INSPECTION, NORMOCEPHALIC Skin: Positive for: Normal Color Eye Exam: Positive for: Normal appearance Neck: Positive for: Supple Cardiovascular/Chest: Positive for: Regular Rate, Rhythm Respiratory: Positive for: Normal Breath Sounds Gastrointestinal/Abdominal: Positive for: Soft Extremity: Positive for: Normal ROM Neurologic/Psych: Positive for: Alert, Oriented, Other (sleeping but easily arousable) - ECG O2 Sat by Pulse Oximetry: 98 (RA) Pulse Ox Interpretation: Normal Medical Decision Making Medical Decision Making: Impression: 67yo male with diarrhea Plan: -- Patient is in no acute distress and to be discharged home. Diagnosis: Malingering, gastroenteritis. Scribe Attestation: Documented by Magali Nugent, acting as a scribe for Cristobal Berry MD Provider Scribe Attestation: All medical record entries made by the Scribe were at my direction and personally dictated by me. I have reviewed the chart and agree that the record accurately reflects my personal performance of the history, physical exam, medical decision making, and the department course for this patient. I have also personally directed, reviewed, and agree with the discharge instructions and disposition. Disposition - Clinical Impression Clinical Impression: Gastroenteritis - Disposition Disposition: Routine/Home Disposition Time: 05:00 Condition: STABLE Prescriptions: Dicyclomine [Bentyl] 20 mg PO Q12 PRN #20 tab PRN Reason: diarrhea/abdominal pain Instructions: Viral Gastroenteritis Forms: [employer] (Uruguayan)
== END 2018-06-23 05:45 | disposition home or self-care (01) ==
LOC: H.ER 00:39
DX: K52.9 Noninfective gastroenteritis and colitis, unspecified (principal); Z76.5 Malingerer [conscious simulation]; Z59.0 Homelessness; Z86.59 Personal history of other mental and behavioral disorders; Z79.899 Other long term (current) drug therapy

== ENCOUNTER 2018-07-13 23:06 | Emergency (ER) | payer MEDICAID, MEDICARE ==
[2018-07-13 23:06] VITALS: BMI 23.1
[2018-07-13 23:30] VITALS: RESP 16
--- NOTE | 2018-07-14 00:55 | ED PDOC ---
HPI: General Adult Time Seen by Provider: 07/14/18 00:24 Chief Complaint (Nursing): Male Genitourinary Chief Complaint (Provider): none History Per: Patient Additional Complaint(s): 67 y/o male presents to ED requesting a place to rest and "think for a while". Patient denies acute medical or psychiatric complaints. History of bedseeking behavior as per chart. Past Medical History Reviewed: Historical Data, Nursing Documentation, Vital Signs Vital Signs: Last Vital Signs Temp 99.0 F 07/13/18 23:29 Pulse 81 07/13/18 23:29 Resp 16 07/13/18 23:29 BP 154/81 H 07/13/18 23:29 Pulse Ox 97 07/13/18 23:29 - Medical History PMH: Schizophrenia Denies: Diabetes, Hepatitis, HIV, HTN, Chronic Kidney Disease, Seizures, Sexually Transmitted Disease - Family History Family History: States: Unknown Family Hx - Home Medications Home Medications: Ambulatory Orders Medication Instructions Recorded Enoxaparin [Lovenox] 40 mg SC DAILY syr 06/17/18 Thiamine [Vitamin B1 Tab] 100 mg PO DAILY tab 06/17/18 Vancomycin/0.9 % Sod Chloride 1 gm IV Q12 11 Days plast..bag 06/17/18 [Vanco 1 Gram/250 ml-0.9% NaCl] fluPHENAZine [Fluphenazine HCl] 5 mg PO DAILY #14 tab 06/18/18 Clindamycin [Cleocin] 300 mg PO BID #14 cap 06/19/18 Dicyclomine [Bentyl] 20 mg PO Q12 PRN #20 tab 06/23/18 - Allergies Allergies/Adverse Reactions: Allergies Allergy/AdvReac Type Severity Reaction Status Date / Time No Known Allergies Allergy Verified 06/23/18 01:01 Review of Systems ROS Statement: Except As Marked, All Systems Reviewed And Found Negative Physical Exam - Reviewed Nursing Documentation Reviewed: Yes Vital Signs Reviewed: Yes - Physical Exam Appears: Positive for: Well, Non-toxic, No Acute Distress (dishelved appearing) Head Exam: Positive for: ATRAUMATIC, NORMAL INSPECTION, NORMOCEPHALIC Skin: Positive for: Normal Color Eye Exam: Positive for: Normal appearance ENT: Positive for: Normal ENT Inspection Cardiovascular/Chest: Positive for: Regular Rate, Rhythm Respiratory: Positive for: Normal Breath Sounds Gastrointestinal/Abdominal: Positive for: Normal Exam Back: Positive for: Normal Inspection Extremity: Positive for: Normal ROM Neurologic/Psych: Positive for: Alert, Oriented (x3) - ECG O2 Sat by Pulse Oximetry: 97 - Progress ED Course And Treament: Patient requires no further intervention in the ED and is stable for discharge at this time Disposition - Clinical Impression Clinical Impression: Malingering - Patient ED Disposition Is Patient to be Admitted: No Counseled Patient/Family Regarding: Studies Performed, Diagnosis, Need For Followup - Disposition Disposition: Routine/Home Disposition Time: 04:31 Condition: IMPROVED
[2018-07-14 04:45] VITALS: BP 136/89; PULSE 87
[2018-07-14 05:51] VITALS: TEMP 98.5
[2018-07-15 02:07] VITALS: O2SAT 97
== END 2018-07-14 05:20 | disposition home or self-care (01) ==
LOC: H.ER 23:06
DX: Z76.5 Malingerer [conscious simulation] (principal)